=== PATIENT | female | born 1955 | race Caucasian/White ===

== ENCOUNTER → 2016-05-28 | Outpatient (CLI) | payer OTHER ==
[~2016-05-28] MED LIST: ADVAIR 250/501 EA INH; ALBUTEROL0.09 MG/A2 IH; ALBUTEROL0.09 MG/A2 INH; AMOXICILLIN500 MG PO; ATIVAN1 MG PO; AUGMENTIN 875 M1 TAB PO; AUGMENTIN 875875 MG PO; CALCIUM 500500 M2 PO; CLARITIN10 MG PO; DAYPRO600 M1 PO; LEVAQUIN750 MG PO; MEDROL DOSEPAK4 MG PO; MOTRIN800 MG PO; NKHM; PREDNICOT10 MG PO; PREDNICOT20 MG PO; PREDNISONE10 MG PO; PROVENTIL0.09 MG/AC IH; SKELAXIN800 MG PO; SPIRIVA18 MCG PO; TRAMADOL HCL50 MG PO; VIBRAMYCIN100 MG PO; VICODIN ES 7501 TAB PO; VITAMIN D32000 IU PO; ZITHROMAX Z PA250 MG PO
== END | disposition home or self-care (01) ==
LOC: MAMMO 14:21
DX: Z12.31 Encounter for screening mammogram for malignant neoplasm of breast (principal)

== ENCOUNTER → 2016-07-03 | Outpatient (CLI) | payer OTHER | END | disposition home or self-care (01) | LOC: RAD 13:59 | DX: M19.012 Primary osteoarthritis, left shoulder (principal) ==

== ENCOUNTER → 2016-08-18 | Outpatient (CLI) | payer OTHER | END | disposition home or self-care (01) | LOC: CT 08:45 | DX: J44.9 Chronic obstructive pulmonary disease, unspecified (principal); R91.1 Solitary pulmonary nodule; J84.10 Pulmonary fibrosis, unspecified; Z90.49 Acquired absence of other specified parts of digestive tract ==

== ENCOUNTER 2017-04-27 17:27 | Inpatient (IN) | payer OTHER ==
[~2017-04-27] VITALS: Ht 152.4 cm; Wt 56.2 kg
--- NOTE | ~2017-04-27 | CON ---
[place], [place] REPORT OF CONSULTATION [id number] UNIT #: [id number] ROOM: 521 DOCTOR: SINAN CHRISTENSEN MD BIRTHDATE: [birth year] DOS: 04/28/2017 REASON FOR CONSULTATION: Chest pain. HISTORY OF PRESENT ILLNESS: The patient was seen in the cardiology department today 04/28/2017 just prior to a pharmacologic stress test. She is a 61-year-old woman who has no previous history of coronary disease. She is a chronic smoker and does have chronic bronchitis with obstructive lung disease. She has had hospitalizations for exacerbation of COPD in the past. She has a history of aseptic necrosis of the femoral head, caused by steroids that were used for her bronchitis. The patient was in her normal state of health until about a week ago. She developed cough, shortness of breath, chills, wheezing and body aches. She went to her PCP and was treated with amoxicillin along with Tessalon Perles. She did feel better and was approaching her baseline; however, on 03/27/2017 while climbing some stairs, she did begin to have worsening shortness of breath along with pain in her right back, which radiated around her right side into the right lower chest. She stated that the pain was worse with a deep breath or cough and that nothing that she could do would make the pain better. When the pain persisted, she presented to the emergency room where she was treated with bronchodilators, aspirin and Toradol. Her symptoms improved and she now feels better, although she still has dyspnea with minor exertion. Since hospitalization, her electrocardiograms have shown no acute changes. Serial troponin levels have been negative. PAST MEDICAL HISTORY: Includes 1. Long-term and ongoing cigarette abuse. 2. Chronic bronchitis. 3. COPD. 4. Peripheral neuropathy. 5. History of aseptic necrosis of the femoral head. 6. History of cholecystectomy, hemorrhoidectomy, hysterectomy and ovarian cystectomy. MEDICATIONS PRIOR TO ADMISSION: Albuterol by inhaler q.4h. p.r.n., Breo Ellipta 200/25 daily, DuoNeb 3 mL by nebulizer q.4 hours, Incruse Ellipta 62.5 mcg inhaled daily, amoxicillin 500 mg t.i.d., Tessalon Perles 100 mg t.i.d., bupropion 100 mg b.i.d., gabapentin 300 mg b.i.d., loratadine 10 mg daily, naproxen 500 mg t.i.d. and ondansetron 4 mg daily p.r.n. nausea. ALLERGIES: She has no known drug allergies. FAMILY HISTORY: The patient's father from cirrhosis. Her mother from cervical cancer. REVIEW OF SYSTEMS: The patient denies diplopia or loss of vision. She denies focal weakness. She denies lightheadedness or syncope. She does have chronic dyspnea, which has gotten worse lately. She also notes an increase in her cough [place], [place] REPORT OF CONSULTATION NAME: DUARTE CARRILLO UNIT #: [id number] ROOM: 521 DOCTOR: SINAN CHRISTENSEN MD BIRTHDATE: [birth year] which is nonproductive. She denies fevers, chills or recent weight change, although she did have some feverishness a week ago. She denies nausea or vomiting. She has had a poor appetite. She has not had any hemoptysis or hematemesis, but occasionally does have streaks of blood when she blows her nose. She does note that her chest pain is worsened with a deep breath or cough. She denies change in bowel or bladder habits and denies blood in her stools or urine. She denies any skin rashes. She denies polydipsia or polyuria. She states that she does have occasional mild swelling in her ankles. The remainder of the review of systems is negative except as noted above. SOCIAL HISTORY: The patient does smoke a half pack or more a day. She does use marijuana on occasion. She does not drink alcohol. PHYSICAL EXAMINATION: GENERAL: The patient is well-nourished white female who is awake, alert and oriented. VITAL SIGNS: Pulse is 88 and regular, blood pressure is 132/69. She is afebrile. She weighs 56.2 kg and has a body mass index of 24.2. HEENT: Normocephalic and atraumatic. Extraocular muscles are intact. Sclerae are clear. Pupils equal, round and react to light. The oral mucosa is moist. Tongue is midline. NECK: Supple. She has no jugular distention. Carotids are full. I heard no bruits. She had no neck or supraclavicular masses and no thyromegaly. LUNGS: Respirations were somewhat tachypneic. She did have decreased breath sounds at the bases with expiratory prolongation and scattered wheezes bilaterally. She had no rales. She had no presacral edema or chest wall tenderness. CARDIOVASCULAR: Heart had a regular rhythm with an S4 gallop, but no S3 or murmur. The PMI was not displaced. She did have some tenderness in her right lateral chest and flank which did not entirely reproduce her presenting pains. ABDOMEN: Soft and normally active. She was tender in her abdomen as well, but stated that the tenderness felt superficial. She had no mass or rebound and no obvious organomegaly. EXTREMITIES: Showed no edema. Peripheral pulses were diminished, but palpable in the feet. LABORATORY DATA: Electrocardiogram shows sinus rhythm and is a normal tracing. IMPRESSION: 1. Atypical chest pain. Thus far, the patient shows no signs of an acute coronary syndrome. 2. Acute exacerbation of chronic obstructive lung disease. 3. History of aseptic femoral necrosis, probably from steroid therapies. 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 PLAN: Based on her presentation and normal cardiac biomarkers, it seems very unlikely that her symptoms are due to an acute coronary syndrome; however, she does have significant risk factors. We will therefore proceed with a pharmacologic stress test. If that is normal, then no other cardiac workup would be indicated at this time. She was told in no uncertain terms that she [place], [place] REPORT OF CONSULTATION NAME: DUARTE CARRILLO UNIT #: [id number] ROOM: 521 DOCTOR: SINAN CHRISTENSEN MD BIRTHDATE: [birth year] should quit smoking immediately. At this point, I have no other suggestions aside from continued risk factor modification. I will let her primary physicians on the results of her stress test when they are available. I thank Dr. Pena for asking our advice regarding her assessment. SINAN CHRISTENSEN MD CM:CONSTR:REPORT OF CONSULTATION 1317 04/28/17 [id number] interface
[2017-04-27 17:35] VITALS: BP 130/68
[2017-04-27 18:00] VITALS: BP 110/68
[2017-04-27] MEDS ORDERED: NEURONTIN300 MG PO (18:26)
[2017-04-27] MEDS ORDERED: TESSALON PERLE100 M1 PO (18:27)
[2017-04-27] MEDS ORDERED: AMOXICILLIN500 M2 PO (18:30)
[2017-04-27] MEDS ORDERED: BUPROPION ER100 M1 PO (18:30)
[2017-04-27 18:32] LABS: HEMATOCRIT 37.5 % (37.0-47.0); HEMOGLOBIN 12.3 g/dl (12.0-16.0); MEAN CELL VOLUME 92.1 fl (81.0-99.0); MEAN CORPUSCULAR HGB 30.2 pg (27.0-31.0); MEAN CORPUSCULAR HGB CONC 32.8 g/dl (33.0-37.0); PLATELET COUNT AUTOMATED 222 10*3/uL (130-400); RED BLOOD COUNT 4.07 10*6/uL (4.10-5.10); RED CELL DISTRI WIDTH 13.8 % (0-14.5); WHITE BLOOD COUNT 11.5 10*3/uL (4.8-10.8)
[2017-04-27 18:48] LABS: ALBUMIN 2.7 gm/dl (3.1-4.5); ALKALINE PHOSPHATASE 62 U/L (45-117); BUN 15 mg/dl (7-24); CHLORIDE 104 mmol/L (98-107); CREATININE 0.68 mg/dL (0.55-1.02); POTASSIUM 3.7 mmol/L (3.5-5.1); SGOT/AST 35 IU/L (3-35); SGPT/ALT 31 U/L (12-78); SODIUM 140 mmol/L (136-145); TOTAL PROTEIN 5.8 gm/dL (6.4-8.2)
[2017-04-27 18:51] VITALS: BP 101/77
[2017-04-27 18:51] LABS: TROPONIN I < 0.015 ng/ml (<0.045)
[2017-04-27 18:54] LABS: PLATELET SUFFICIENCY NORMAL (NORMAL); TOTAL CELLS COUNTED 100 #CELLS
[2017-04-27 19:25] VITALS: BP 116/64
[2017-04-27 21:06] VITALS: BP 150/82
[2017-04-27] MEDS ORDERED: DUONEB 3 MG/3 ML3 M1 INH (21:48)
[2017-04-27] MEDS ORDERED: INCRUSE ELLI62.5 MCG INH (21:48)
[2017-04-27] MEDS ORDERED: BREO ELLIPTA 21 EACH INH (21:48)
[2017-04-27] MEDS ORDERED: ONDANSETRON4 M1 PO (21:54)
[2017-04-27] MEDS ORDERED: CLARITIN10 MG PO (21:55)
[2017-04-27] MEDS ORDERED: NAPROSYN500 MG PO (21:55)
[2017-04-27 22:00] VITALS: BP 127/70
[2017-04-28] VITALS: BP 129/78
[2017-04-28 06:34] LABS: HEMATOCRIT 38.4 % (37.0-47.0); HEMOGLOBIN 12.5 g/dl (12.0-16.0); MEAN CELL VOLUME 93.7 fl (81.0-99.0); MEAN CORPUSCULAR HGB 30.5 pg (27.0-31.0); MEAN CORPUSCULAR HGB CONC 32.6 g/dl (33.0-37.0); MEAN PLATELET VOLUME 10.1 fl (9.6-12.3); PLATELET COUNT AUTOMATED 273 10*3/uL (130-400)
[2017-04-28 07:06] LABS: BUN 12 mg/dl (7-24); CHLORIDE 108 mmol/L (98-107); CHOLESTEROL 103 mg/dL (<200); CREATININE 0.74 mg/dL (0.55-1.02); PHOSPHOROUS 3.5 mg/dL (2.5-4.9); SODIUM 142 mmol/L (136-145); TRIGLYCERIDES 43 mg/dl (<150); VLDL CHOLESTEROL 9 mg/dL (6-40)
[2017-04-28 07:09] LABS: BURR CELLS FEW; PLATELET SUFFICIENCY NORMAL (NORMAL); TOTAL CELLS COUNTED 100 #CELLS
[2017-04-28 07:15] LABS: HDL CHOLESTEROL 50 mg/dl (40-60); LDL CHOLESTEROL 44 mg/dL (9-159); THYROID STIM HORMONE (HS) 0.419 uIU/ml (0.358-4.75)
[2017-04-28 07:44] LABS: VITAMIN D, 25-HYDROXY 29.2 ng/mL (30-100)
[2017-04-28 08:00] VITALS: BP 132/69
[2017-04-28 16:00] VITALS: BP 124/68
[2017-04-28 20:00] VITALS: BP 132/67
[2017-04-29] VITALS: BP 132/70
[2017-04-29 06:45] VITALS: BP 134/72
[2017-04-29 07:20] LABS: BUN 16 mg/dl (7-24); CHLORIDE 111 mmol/L (98-107); CREATININE 0.64 mg/dL (0.55-1.02); POTASSIUM 3.4 mmol/L (3.5-5.1); SODIUM 143 mmol/L (136-145)
[2017-04-29 07:24] LABS: BASO % 0.1 % (0.0-1.0); HEMATOCRIT 37.1 % (37.0-47.0); HEMOGLOBIN 11.9 g/dl (12.0-16.0); LYMPH # 0.8 10*3/uL (1.3-4.4); LYMPH % 6.4 % (27.0-41.0); MEAN CORPUSCULAR HGB 29.8 pg (27.0-31.0); MEAN CORPUSCULAR HGB CONC 32.1 g/dl (33.0-37.0); MEAN PLATELET VOLUME 9.8 fl (9.6-12.3); MONO # 0.9 10*3/uL (0.1-1.0); MONO % 6.8 % (3.0-9.0); NEUT # 11.3 10*3/uL (2.3-7.9); NEUT % 86.1 % (47.0-73.0); RED BLOOD COUNT 3.99 10*6/uL (4.10-5.10); RED CELL DISTRI WIDTH 14.3 % (0-14.5); WHITE BLOOD COUNT 13.2 10*3/uL (4.8-10.8)
[2017-04-29 07:25] LABS: PLATELET COUNT AUTOMATED 377 10*3/uL (130-400)
[2017-04-29 08:00] VITALS: BP 134/72
[2017-04-29] MEDS ORDERED: PREDNISONE10 MG PO (13:20)
== END 2017-04-29 13:58 | disposition home or self-care (01) | DRG 871 ==
LOC: ED 17:27 → EDHOLD 20:18 → 5E 20:18
PROVIDERS: Emergency Medicine; Hospitalist; Student in an Organized Health Care Education/Training Program
PROC: 4A02XM4 Measurement of Cardiac Total Activity, External Approach (ICD-10-PCS; principal; 2017-04-28)
PROC: 3E073KZ Introduction of Other Diagnostic Substance into Coronary Artery, Percutaneous Approach (ICD-10-PCS; 2017-04-28)
DX: A41.9 Sepsis, unspecified organism (principal); J18.9 Pneumonia, unspecified organism; E43 Unspecified severe protein-calorie malnutrition; J44.1 Chronic obstructive pulmonary disease with (acute) exacerbation; J44.0 Chronic obstructive pulmonary disease with (acute) lower respiratory infection; K21.9 Gastro-esophageal reflux disease without esophagitis; E87.6 Hypokalemia; E55.9 Vitamin D deficiency, unspecified; F12.90 Cannabis use, unspecified, uncomplicated; D72.810 Lymphocytopenia; G62.9 Polyneuropathy, unspecified; F17.210 Nicotine dependence, cigarettes, uncomplicated; M94.0 Chondrocostal junction syndrome [Tietze]; Z71.6 Tobacco abuse counseling; Z90.710 Acquired absence of both cervix and uterus; Z90.49 Acquired absence of other specified parts of digestive tract; Z68.24 Body mass index [BMI] 24.0-24.9, adult; Z80.8 Family history of malignant neoplasm of other organs or systems; Z83.79 Family history of other diseases of the digestive system; Z79.899 Other long term (current) drug therapy

== ENCOUNTER 2017-05-06 13:32 | Inpatient (IN) | payer OTHER ==
[~2017-05-06] VITALS: Ht 153.6 cm; Wt 56.8 kg
--- NOTE | ~2017-05-06 | PR ---
[place], [place] PROGRESS NOTE NAME: DUARTE CARRILLO [facility] #: [id number] UNIT #: [id number] ROOM: 532 DOCTOR: LAURO MACEDO MD,BOB BIRTHDATE: [birth year] DOS: 05/09/2017 SUBJECTIVE: She has been noted without any acute distress at this time. The coughing has been subsiding. Shortness breath was slowly improving. There were no symptoms of chest pain. She was continued on antibiotics. The patient denies symptoms of nausea or vomiting. Denies any abdominal pain. Denies any symptoms of hematuria or dizziness. Remaining systems were reviewed, they were noted all negative. CT scan of the chest was completed yesterday for this patient as a CTA of this patient for further assessment. OBJECTIVE: VITAL SIGNS: This morning, normal temperature, respiratory rate 20, heart rate of 93, blood pressure 160/78 to 116/84. The pulse oxygen saturation of the patient noted on room air 93% saturation. HEENT: Examination shows head was atraumatic. Eyes nonicterus. NECK: Supple. CARDIOVASCULAR: S1, S2 audible. LUNGS: Noted with moderate decreased breath sounds in the lungs bilaterally with scattered expiratory wheezing. ABDOMEN: Soft, nontender. Bowel sounds present. EXTREMITIES: The patient noted without any acute edema. LABORATORY DATA: CT of the chest does not show any evidence of pulmonary embolism. The patient was noted with increased interstitial markings in the upper lung as well. There was no area of consolidation or other infiltration. Centrilobular emphysema was noted with a small nodule noted appeared to be probably intraparenchymal lymph node for the patient in the right minor fissure area. There was no significant lymphadenopathy. The CBC of the patient, WBC count 23.3, hemoglobin and hematocrit normal, and platelet count 452. Blood culture from 05/06/2017 for the patient was noted without any bacterial growth. CBC: WBC count 23.3 noted today, hemoglobin and hematocrit normal, and platelet count elevated mildly at about 452,000. IMPRESSION: 1. The patient who has been noted with the current acute hypoxic respiratory failure with exacerbation of chronic obstructive pulmonary disease, increased interstitial marking of the lung. The patient with unclear significance. Evidence of a small nodule fissure noted in the right mid lung for this patient most likely intraparenchymal lymph node suspected. Changes centrilobular emphysema. Leukocytosis still noted significant but decreased partially from yesterday. PLAN OF TREATMENT: Continue current antibiotics. The patient at this time will continue bronchodilators, oxygen supplementation and corticosteroids, but the dose will be decreased to 40 mg b.i.d. dosing. Other supportive therapy and plan of management continued. Monitor respiratory status closely. Repeat CBC in the morning. Discharge planning was done after another CBC tomorrow morning to assess the response to the current changes in medical management as well. [place], [place] PROGRESS NOTE NAME: GERARDODUARTE Juan Ramon [id number] UNIT #: [id number] ROOM: [facility] DOCTOR: BOB VALLE MD BIRTHDATE: [birth year] BOB RESTREPO MD CM:PNTEODORO [id number] BOB MACEDO MD 05/09/17 1311 interface
--- NOTE | ~2017-05-06 | PR ---
[place], [place] PROGRESS NOTE NAME: DUARTE CARRILLO [facility] #: [id number] UNIT #: [id number] ROOM: 532 DOCTOR: LAURO MACEDO MD,BOB BIRTHDATE: [birth year] DOS: 05/08/2017 SUBJECTIVE: The patient was noted comfortable at this time without any acute distress. Has not been noted any ongoing acute complaints at present time. Shortness of breath has been improving. The coughing has been resolving. There were no symptoms of chest pain or any hemoptysis. She denies symptoms of abdominal pain, nausea, or vomiting. Denies dizziness. Remaining systems were reviewed. They were noted all negative: PHYSICAL EXAMINATION: GENERAL: The patient was sitting on the bed at this time, eating her breakfast without any distress. VITAL SIGNS: The pulse oxygen saturation recorded as 97% on 2 liter nasal cannula, this was at rest. The temperature noted as normal. The respiratory rate recorded as 20-18, heart rate 79, blood pressure 154/88. Intake for the patient was about 1800 mL. HEENT: No new change. NECK: Supple. CARDIOVASCULAR: S1, S2 audible. LUNGS: The patient was noted with general reduction in breath sounds still noted with scattered expiratory wheezing. There were no crackles. ABDOMEN: Soft, nontender. EXTREMITIES: The patient was noted without any acute edema. MUSCULOSKELETAL: The patient was noted without any acute deformities. VISIBLE SKIN: No lesions or rashes. CENTRAL NERVOUS SYSTEM: No focal deficit. Cranial nerves 2-12 intact. LABORATORY DATA: CBC today for the patient still noted significant WBC count elevation as 26,000, hemoglobin 12.2, hematocrit 38.4, platelet count 433,000, 92% segmented neutrophils. BMP of the patient's glucose 136, BUN normal, creatinine was normal, magnesium was normal. IMPRESSION: 1. The patient who has been currently admitted to the hospital with ongoing acute exacerbation of chronic obstructive pulmonary disease with acute respiratory failure, still noted significant hypoxia. The patient walked only few feet on a leveled surface, noted significant oxygen desaturation. 2. Over debility. 3. Persistent leukocytosis. Chest x-ray was not suggestive of any acute pneumonia. ____ infection for this patient is still to be considered in the lungs. The cough has been noted intermittently with some sputum expectoration. PLAN OF MANAGEMENT: CT scan of the chest will be obtained to assess the significant hypoxia. At this time, still remains persistent. A CT scan of the chest will be obtained that will also clarify any underlying infiltration since she actually not always sensitive enough to ____ any pneumonia. Continuation in the meantime, bronchodilators and other therapies. The Solu-Medrol is currently noted 60 mg, will be decreased to 40 mg q.8h. Doxycycline will be added to the treatment. Zithromax will be discontinued. Bronchoscopy will be considered, if [place], [place] PROGRESS NOTE NAME: DUARTE CARRILLO [facility] #: [id number] UNIT #: [id number] ROOM: [facility] DOCTOR: LAURO MACEDO MD,BOB BIRTHDATE: [birth year] the patient respiratory status remains the same, persistent leukocytosis. Usual care. BOB RESTREPO MD CM:PNTRANS [id number] BOB MACEDO MD 05/09/17 0008 interface
--- NOTE | ~2017-05-06 | PR ---
[place], [place] PROGRESS NOTE NAME: DUARTE CARRILLO [facility] #: [id number] UNIT #: [id number] ROOM: 532 DOCTOR: DEBORAH BOOTH MD BIRTHDATE: [birth year] DOS: SUBJECTIVE: The patient has been admitted to hospital with acute respiratory distress with acute bronchitis and pneumonitis with hypoxia, sepsis, pneumonitis, COPD with emphysema, tachypnea, tachycardia, with history of tobacco abuse, lactic acidosis, leukocytosis and malnutrition, vitamin D deficiency and GERD syndrome. The patient is feeling much better today. She is breathing better and she does not have any chest pain, no difficulty breathing. She is having slight cough. Her basic metabolic profile shows glucose 136, calcium 8.3, magnesium 2.5. Other values are normal. Urine culture did not grow any bacteria. CBC showed white count 26,000, hemoglobin 12.2, hematocrit 38.6, white count is elevated ____. The patient is receiving Solu-Medrol. Neutrophil count is 92, lymphocyte is 4. Blood culture is negative. OBJECTIVE: HEART: Regular. CHEST: Having occasional wheeze. No crepitation. VITAL SIGNS: Blood pressure 156/89, pulse 79, respirations ____, temperature 97.9. DEBORAH BOOTH MD CM:PNTRANS [phone] DEBORAH BOOTH MD 05/08/17 182 interface
--- NOTE | ~2017-05-06 | PR ---
[place], [place] PROGRESS NOTE NAME: DUARTE CARRILLO [facility] #: [id number] UNIT #: [id number] ROOM: 532 DOCTOR: LAURO MACEDO MD,BOB BIRTHDATE: [birth year] DOS: 05/10/2017 PULMONARY PROGRESS NOTE SUBJECTIVE: She has been ambulating with reduction in respiratory complaints noted. Cough has been noted minimal at this time. Shortness of breath has been improving. There were no symptoms of chest pain or hemoptysis. OBJECTIVE: VITAL SIGNS: For the patient which has been recorded shows normal temperature, respiratory rate 18, heart rate 93, blood pressure 143/77. Pulse oxygen saturation on room air was 94% saturation. HEENT: No acute change. NECK: Supple. CARDIOVASCULAR: S1, S2 audible. LUNGS: Noted without any wheeze or crackles. ABDOMEN: Soft, nontender. EXTREMITIES: Without any acute edema. LABORATORY DATA: CBC: WBC count 26,000, platelet count 436,000, 83% segmented neutrophils. IMPRESSION: The patient with leukocytosis that remains persistent, most likely related to corticosteroid and resolving acute exacerbation of chronic obstructive pulmonary disease. The patient with acute respiratory failure, improving progressively as well with exacerbation of chronic obstructive pulmonary disease. PLAN OF TREATMENT: The patient will be asked for formal assessment for home oxygen today prior to discharge. Discharge for the patient to be done on tapering dose of prednisone and oral antibiotics and outpatient followup. Abstinence of tobacco use was recommended. BOB RESTREPO MD CM:PNTRANS [id number] BOB MACEDO MD 05/10/17 1141 interface
--- NOTE | ~2017-05-06 | CON ---
[place], [place] REPORT OF CONSULTATION NAME: DUARTE CARRILLO [facility] #: [id number] UNIT #: [id number] ROOM: 532 DOCTOR: LAURO MACEDO MD,BOB BIRTHDATE: [birth year] DOS: 05/07/2017 PULMONARY CONSULTATION EVALUATION MANAGEMENT NOTE REQUESTING PHYSICIAN: Consultation requested by Jaime Pena M.D. REASON FOR CONSULTATION: Assess the patient for ongoing acute respiratory complaints. HISTORY OF PRESENT ILLNESS: This is a 61-year-old white female patient who has been known to me from the office visit with history of COPD. The patient came into my office and was seen on 05/05/2017 as the patient recently admitted in this hospital and discharged home. The patient stated that she has been still noted ongoing acute severe illness with cough, shortness breath with minimal exertion, fatigue and tiredness. The cough has been noted nonproductive. The patient denies symptoms of chest pain. She does have symptoms of wheezing as well. The patient was advised to go back to the hospital to be admitted on the 05/05/2017, but the patient did not go to the hospital and then went to the hospital Emergency on 05/05/2017. The patient was assessed and admitted to the hospital for further medical management. The patient was seen in the office with acute hypoxia as well and hypoxic respiratory failure. Pulse ox saturation 89% and after the patient walked about 50 feet or so, her pulse oxygen saturation decreased severely, unable to bring up to the 90% level or show even with 4 liters of oxygen supplementation. The patient stated since she has been in the hospital, she has been noted with partial improvement reduction in the respiratory symptoms reported earlier. REVIEW OF SYSTEMS: CONSTITUTIONAL SYMPTOMS: She was still complaining of symptoms of fatigue. Denies symptoms of chills. The patient denies symptoms of fever. EYES: Denies any burning, redness, or tenderness. EARS, NOSE, THROAT SYMPTOMS: No sore throat, hoarseness, otalgia, postnasal drainage, epistaxis. CARDIOVASCULAR: Denies anginal pain, edema, pain of the lower extremities. GASTROINTESTINAL SYMPTOMS: Dysphagia, nausea, vomiting, diarrhea, abdominal pain, hematemesis, melena, hematochezia, abnormal weight loss. MUSCULOSKELETAL: No acute joint pain, redness, or tenderness. GENITOURINARY SYMPTOMS: No dysuria, suprapubic pain, or hematuria. SKIN: Denies lesions or rashes. CENTRAL NERVOUS SYSTEM: No dizziness, headache, diplopia, syncopal episodes or focal deficit. Remaining systems were reviewed, they were noted all negative. PAST MEDICAL HISTORY: 1. COPD. 2. History of pulmonary nodule of 6 mm since 2012 and another nodule 9 mm noted in the left upper lobe with mild abnormal SUV uptake for the patient with a PET scan as 1.4. [place], [place] REPORT OF CONSULTATION NAME: DUARTE CARRILLO UNIT #: [id number] ROOM: [facility] DOCTOR: LAURO MACEDO MD,BOB BIRTHDATE: [birth year] SOCIAL HISTORY: The patient lives at home. She is , has 2 children. Denies history of alcohol use, illicit drug use. Tobacco use started at age of [age] years old as 1-1/2 pack of cigarettes per day until 01/2015. PAST SURGICAL HISTORY: 1. Noted as partial hysterectomy, 33 years old. 2. Cholecystectomy, age [age] years old. 3. Lumbar laminectomy. FAMILY HISTORY: The patient's father unknown illness. Mother at age 5252 years old with cancer of the cervix. MEDICATIONS: From home were noted use of ProAir HFA inhaler, Tessalon Perles, Wellbutrin, Breo Ellipta, Neurontin, DuoNeb, loratadine, naproxen, prednisone, recent tapering dose and Incruse Ellipta. DRUG ALLERGIES: No known drug allergies. PHYSICAL EXAMINATION: GENERAL: This is a 61-year-old female who was noted to be with a height of 5 feet, weight 125 pounds, BMI 24. VITAL SIGNS: For the patient which has been recorded showed the temperature noted normal since admission. The respiratory rate between 20-18, heart 75-116. Blood pressure 156/81 to 153/70. Pulse oxygen saturation on room air was noted 88% on 3 liter nasal cannula 97% saturation of oxygen. HEENT: Examination shows head was atraumatic. Eyes: No icterus. NECK: Supple. CARDIOVASCULAR: S1, S2 is audible. LUNGS: The patient was noted without any crackles. Decreased breath sounds are noted in the lungs bilaterally. Wheezing was present. ABDOMEN: Flat, soft, nontender. Bowel sounds present. EXTREMITIES: Without any acute edema. CENTRAL NERVOUS SYSTEM: The patient noted without any focal neurologic deficit. Cranial nerves 2-12 intact. SKIN: Visible skin, no lesions or rashes. MUSCULOSKELETAL: Without any acute deformities. LABORATORY DATA: Lactic acid 3.2 on admission and then 1.6 followup. The CBC on 05/06/2017, WBC count 24,000, hemoglobin and hematocrit normal, platelet count 452,000 and elevated at 93% segmented neutrophils. CMP on 05/06/2017, noted as glucose 158, BUN normal, creatinine was normal. Albumin 3.0. The troponin of the patient noted normal yesterday as well. CBC today: WBC count 21.7, hemoglobin and hematocrit normal, platelet count elevated 413,000. BMP: Glucose 138, BUN and creatinine were normal. Urine culture preliminary no bacterial growth. Two-view chest x-ray of the patient, which was done in the Emergency Room was personally reviewed does not show any acute pulmonary infiltration. IMPRESSION: 1. The patient has been noted with severe leukocytosis with ongoing findings [place], [place] REPORT OF CONSULTATION NAME: DUARTE CARRILLO UNIT #: [id number] ROOM: [facility] DOCTOR: BOB VALLE MD BIRTHDATE: [birth year] consistent with the sepsis, most likely related to acute bronchitis and ongoing acute exacerbation of chronic obstructive pulmonary disease and acute respiratory failure as a result of the above as well. 2. Past history of nicotine use. 3. History of rhinitis and other medical problems as well as essential hypertension. PLAN OF MANAGEMENT: Continuation of the current corticosteroids. Continue current antibiotic for the patient suffice for current treatment. Bronchodilator will be given every 4 hours. The patient already given the intravenous fluid. Gradual reduction of steroids based on improvement in respiratory symptoms will be done. Other treatment plan and management as ongoing. Usual care, other supportive plan of therapy and management as well. DVT prophylaxis will be continued. Thanks for allowing me to participate in the care of this patient. BOB RESTREPO MD CM:CONSTR:REPORT OF CONSULTATION 1308 05/08/17 0306 interface
--- NOTE | ~2017-05-06 | PR ---
[place], [place] PROGRESS NOTE NAME: DUARTE CARRILLO [facility] #: [id number] UNIT #: [id number] ROOM: 532 DOCTOR: DEBORAH BOOTH MD BIRTHDATE: [birth year] DOS: SUBJECTIVE: The patient has been admitted to hospital with acute respiratory failure, acute respiratory distress, COPD, emphysema and pneumonitis and the patient is feeling gradually improving. She denies any chest pain. She is having some cough, but mostly it is dry. It is improving also, much better. She does not have any nausea. No vomiting. No constipation. No diarrhea. The patient is feeling quite comfortable today. Her CBC is still showing elevation of white count to 23,003, hemoglobin 13.8. The elevated white count is due to the Solu-Medrol, which patient is receiving. CTA of the chest was done. It shows no evidence of pulmonary embolus, chronic parenchymal lung disease, no acute process or adverse changes were noted. OBJECTIVE: VITAL SIGNS: Her blood pressure is 160/78, pulse 93, respirations 20, temperature 98.2. HEART: ____. CHEST: Having occasional wheezes. No crepitation. ABDOMEN: Soft. DEBORAH BOOTH MD CM:PNTEODORO 1346 [id number] DEBORAH BOOTH MD 05/09/17 1453 interface
--- NOTE | ~2017-05-06 | EKG ---
[place], [place] ELECTROCARDIOGRAM REPORT NAME: DUARTE CARRILLO UNIT #: [id number] ROOM: 532 DOCTOR: LAURO MACEDO MD,BOB BIRTHDATE: [birth year] DOS: 05/06/2017 Electrocardiogram done on 05/06/2017 at 2:12 p.m. Electrocardiogram shows normal sinus rhythm with heart rate 97 beats per minute. Right axis deviation noted with right atrial enlargement as well. BOB RESTREPO MD CM:EKGRPT:ELECTROCARDIOGRAM REPORT 1453 1540 BOB MACEDO MD
[~2017-05-06 13:32] MED LIST changes: +AMOXICILLIN500 M2 PO; +BREO ELLIPTA 21 EACH INH; +BUPROPION ER100 M1 PO; +DUONEB 3 MG/3 ML3 M1 INH; +INCRUSE ELLI62.5 MCG INH; +NAPROSYN500 MG PO; +NEURONTIN300 MG PO; +ONDANSETRON4 M1 PO; +TESSALON PERLE100 M1 PO
[2017-05-06 13:37] VITALS: BP 156/81
[2017-05-06 14:25] VITALS: BP 141/82
[2017-05-06 14:28] LABS: HEMATOCRIT 39.5 % (37.0-47.0); HEMOGLOBIN 12.8 g/dl (12.0-16.0); MEAN CELL VOLUME 92.5 fl (81.0-99.0); MEAN CORPUSCULAR HGB CONC 32.4 g/dl (33.0-37.0); MEAN PLATELET VOLUME 8.9 fl (9.6-12.3); PLATELET COUNT AUTOMATED 453 10*3/uL (130-400); RED BLOOD COUNT 4.27 10*6/uL (4.10-5.10); WHITE BLOOD COUNT 24.1 10*3/uL (4.8-10.8)
[2017-05-06 14:44] LABS: ALKALINE PHOSPHATASE 74 U/L (45-117); BUN 15 mg/dl (7-24); CHLORIDE 104 mmol/L (98-107); CREATININE 0.95 mg/dL (0.55-1.02); SGOT/AST 15 IU/L (3-35); SGPT/ALT 53 U/L (12-78); SODIUM 140 mmol/L (136-145); TOTAL PROTEIN 6.4 gm/dL (6.4-8.2)
[2017-05-06 14:47] LABS: TOTAL CELLS COUNTED 100 #CELLS
[2017-05-06 14:48] LABS: PLATELET SUFFICIENCY HIGH (NORMAL)
[2017-05-06 14:58] LABS: TROPONIN I < 0.015 ng/ml (<0.045)
[2017-05-06 15:29] VITALS: BP 140/78
[2017-05-06 16:00] VITALS: BP 138/78
[2017-05-06 16:30] VITALS: BP 130/78
[2017-05-06] MEDS ORDERED: VITAMIN D-32000 UNI1 PO (17:32)
[2017-05-06 17:37] LABS: BILIRUBIN NEGATIVE (NEGATIVE); BLOOD NEGATIVE (NEGATIVE); CLARITY CLEAR (CLEAR); COLOR YELLOW (YELLOW); GLUCOSE NEGATIVE (NEGATIVE); KETONE NEGATIVE (NEGATIVE); LEUKO ESTERASE NEGATIVE (NEGATIVE); NITRITE NEGATIVE (NEGATIVE); PH 6.5 (5.0-9.0); UROBILINOGEN 0.2 E.U./dl (0.2-1.0)
[2017-05-06 17:43] LABS: BACTERIA 2+; MUCOUS TRACE; RBC 0-2 rbc/hpf (0-2); WBC 0-2 wbc/hpf (0-5)
[2017-05-06 20:00] VITALS: BP 150/72
[2017-05-07 00:16] VITALS: BP 153/70
[2017-05-07 06:29] LABS: HEMATOCRIT 38.8 % (37.0-47.0); HEMOGLOBIN 12.2 g/dl (12.0-16.0); MEAN CELL VOLUME 94.9 fl (81.0-99.0); MEAN CORPUSCULAR HGB 29.8 pg (27.0-31.0); MEAN CORPUSCULAR HGB CONC 31.4 g/dl (33.0-37.0); MEAN PLATELET VOLUME 8.9 fl (9.6-12.3); PLATELET COUNT AUTOMATED 413 10*3/uL (130-400); RED BLOOD COUNT 4.09 10*6/uL (4.10-5.10); RED CELL DISTRI WIDTH 14.1 % (0-14.5); WHITE BLOOD COUNT 21.7 10*3/uL (4.8-10.8)
[2017-05-07 06:54] LABS: PLATELET SUFFICIENCY NORMAL (NORMAL); TOTAL CELLS COUNTED 100 #CELLS
[2017-05-07 06:56] LABS: BUN 13 mg/dl (7-24); CHLORIDE 107 mmol/L (98-107); CREATININE 0.78 mg/dL (0.55-1.02); PHOSPHOROUS 3.7 mg/dL (2.5-4.9); POTASSIUM 4.2 mmol/L (3.5-5.1); SODIUM 142 mmol/L (136-145)
[2017-05-07 12:00] VITALS: BP 155/72
[2017-05-07 16:00] VITALS: BP 146/85
[2017-05-07 20:00] VITALS: BP 154/81
[2017-05-08] VITALS: BP 154/88
[2017-05-08 06:04] LABS: BUN 16 mg/dl (7-24); CHLORIDE 106 mmol/L (98-107); CREATININE 0.73 mg/dL (0.55-1.02); POTASSIUM 4.5 mmol/L (3.5-5.1); SODIUM 141 mmol/L (136-145)
[2017-05-08 06:07] LABS: HEMATOCRIT 38.4 % (37.0-47.0); HEMOGLOBIN 12.2 g/dl (12.0-16.0); MEAN CELL VOLUME 94.6 fl (81.0-99.0); MEAN CORPUSCULAR HGB CONC 31.8 g/dl (33.0-37.0); MEAN PLATELET VOLUME 9.3 fl (9.6-12.3); PLATELET COUNT AUTOMATED 433 10*3/uL (130-400); RED BLOOD COUNT 4.06 10*6/uL (4.10-5.10); RED CELL DISTRI WIDTH 14.1 % (0-14.5)
[2017-05-08 07:12] LABS: TOTAL CELLS COUNTED 100 #CELLS
[2017-05-08 07:13] LABS: PLATELET SUFFICIENCY HIGH (NORMAL)
[2017-05-08 08:00] VITALS: BP 156/80
[2017-05-08 12:00] VITALS: BP 153/78
[2017-05-08 16:00] VITALS: BP 151/64
[2017-05-08 20:00] VITALS: BP 154/60
[2017-05-09] VITALS: BP 169/84
[2017-05-09 08:00] VITALS: BP 160/78
[2017-05-09 11:38] LABS: HEMATOCRIT 42.3 % (37.0-47.0); HEMOGLOBIN 13.5 g/dl (12.0-16.0); MEAN CELL VOLUME 93.2 fl (81.0-99.0); MEAN CORPUSCULAR HGB 29.7 pg (27.0-31.0); MEAN CORPUSCULAR HGB CONC 31.9 g/dl (33.0-37.0); MEAN PLATELET VOLUME 8.8 fl (9.6-12.3); PLATELET COUNT AUTOMATED 452 10*3/uL (130-400); RED BLOOD COUNT 4.54 10*6/uL (4.10-5.10); RED CELL DISTRI WIDTH 14.1 % (0-14.5); WHITE BLOOD COUNT 23.3 10*3/uL (4.8-10.8)
[2017-05-09 12:00] VITALS: BP 156/80; BP 158/72
[2017-05-09 12:05] LABS: PLATELET SUFFICIENCY HIGH (NORMAL); TOTAL CELLS COUNTED 100 #CELLS
[2017-05-09 16:00] VITALS: BP 145/74
[2017-05-09 20:00] VITALS: BP 151/75
[2017-05-10] VITALS: BP 143/77
[2017-05-10 06:10] LABS: HEMATOCRIT 41.4 % (37.0-47.0); HEMOGLOBIN 12.9 g/dl (12.0-16.0); MEAN CELL VOLUME 93.9 fl (81.0-99.0); MEAN CORPUSCULAR HGB 29.3 pg (27.0-31.0); MEAN CORPUSCULAR HGB CONC 31.2 g/dl (33.0-37.0); PLATELET COUNT AUTOMATED 436 10*3/uL (130-400); RED BLOOD COUNT 4.41 10*6/uL (4.10-5.10); RED CELL DISTRI WIDTH 14.4 % (0-14.5); WHITE BLOOD COUNT 26.4 10*3/uL (4.8-10.8)
[2017-05-10 07:04] LABS: PLATELET SUFFICIENCY HIGH (NORMAL); TOTAL CELLS COUNTED 100 #CELLS
[2017-05-10 08:00] VITALS: BP 166/82
[2017-05-10 12:00] VITALS: BP 148/74
[2017-05-10] MEDS ORDERED: DOXYCYCLINE MO100 M1 PO (13:05)
[2017-05-10] MEDS ORDERED: PREDNISONE10 MG PO (13:05)
== END 2017-05-10 13:59 | disposition home or self-care (01) | DRG 871 ==
LOC: ED 13:32 → EDHOLD 15:40 → 5E 15:40
PROVIDERS: Internal Medicine Critical Care Medicine; Physician Assistant; Student in an Organized Health Care Education/Training Program
DX: A41.9 Sepsis, unspecified organism (principal); J96.01 Acute respiratory failure with hypoxia; J18.9 Pneumonia, unspecified organism; D68.59 Other primary thrombophilia; E44.0 Moderate protein-calorie malnutrition; J44.1 Chronic obstructive pulmonary disease with (acute) exacerbation; J44.0 Chronic obstructive pulmonary disease with (acute) lower respiratory infection; R65.20 Severe sepsis without septic shock; F17.200 Nicotine dependence, unspecified, uncomplicated; Z71.6 Tobacco abuse counseling; R73.9 Hyperglycemia, unspecified; F12.90 Cannabis use, unspecified, uncomplicated; K21.9 Gastro-esophageal reflux disease without esophagitis; E55.9 Vitamin D deficiency, unspecified; R53.81 Other malaise; G62.9 Polyneuropathy, unspecified; Z90.49 Acquired absence of other specified parts of digestive tract; Z90.710 Acquired absence of both cervix and uterus; Z79.899 Other long term (current) drug therapy; Z68.24 Body mass index [BMI] 24.0-24.9, adult

== ENCOUNTER → 2017-08-19 | Outpatient (CLI) | payer OTHER ==
[~2017-08-19] MED LIST changes: +DOXYCYCLINE MO100 M1 PO; +VITAMIN D-32000 UNI1 PO
== END | disposition home or self-care (01) ==
LOC: CT 09:55
DX: J43.9 Emphysema, unspecified (principal); R91.1 Solitary pulmonary nodule

== ENCOUNTER → 2019-01-02 | Outpatient (CLI) | payer OTHER, MEDICAID | END | disposition home or self-care (01) | LOC: LAB 07:54 | DX: R05 Cough (principal) ==

== ENCOUNTER → 2019-11-14 | Outpatient (CLI) | payer OTHER, MEDICAID ==
[2019-11-14 09:12] LABS: BASO # 0.1 10*3/uL (0.0-0.1); BASO % 0.6 % (0.0-1.0); EOS # 0.2 10*3/uL (0.0-0.4); EOS % 2.8 % (1.0-4.0); HEMATOCRIT 46.1 % (37.0-47.0); LYMPH # 2.4 10*3/uL (1.3-4.4); LYMPH % 28.4 % (27.0-41.0); MEAN CELL VOLUME 94.5 fl (81.0-99.0); MEAN CORPUSCULAR HGB 29.5 pg (27.0-31.0); MEAN CORPUSCULAR HGB CONC 31.2 g/dl (33.0-37.0); MEAN PLATELET VOLUME 9.1 fl (9.6-12.3); MONO # 0.5 10*3/uL (0.1-1.0); MONO % 5.9 % (3.0-9.0); NEUT # 5.3 10*3/uL (2.3-7.9); NEUT % 62.1 % (47.0-73.0); PLATELET COUNT AUTOMATED 366 10*3/uL (130-400); RED BLOOD COUNT 4.88 10*6/uL (4.10-5.10); RED CELL DISTRI WIDTH 13.6 % (0-14.5); WHITE BLOOD COUNT 8.5 10*3/uL (4.8-10.8)
[2019-11-14 09:23] LABS: INTERNATIONAL NORM RATIO 0.9 (2.0-3.5)
[2019-11-14 09:29] LABS: ALBUMIN 3.9 gm/dl (3.1-4.5); ALKALINE PHOSPHATASE 83 U/L (45-117); BUN 16 mg/dl (7-24); CHLORIDE 106 mmol/L (98-107); POTASSIUM 3.9 mmol/L (3.5-5.1); SGOT/AST 17 IU/L (3-35); SGPT/ALT 28 U/L (12-78); SODIUM 139 mmol/L (136-145); TOTAL PROTEIN 7.1 gm/dL (6.4-8.2)
[2019-11-14 10:04] LABS: BILIRUBIN NEGATIVE; BLOOD NEGATIVE (NEGATIVE); CLARITY CLEAR (CLEAR); COLOR YELLOW (YELLOW); GLUCOSE NEGATIVE; KETONE NEGATIVE; LEUKO ESTERASE 2+ (NEGATIVE); NITRITE POSITIVE (NEGATIVE); PH 7.5 (4.5-8.0); UROBILINOGEN 0.2 E.U./dl (0.0-1.0)
[2019-11-14 12:32] LABS: BACTERIA 4+; WBC 51-100 wbc/hpf (0-5)
== END | disposition home or self-care (01) ==
LOC: LAB 08:39
PROVIDERS: ATTEND Orthopaedic Surgery
DX: J44.9 Chronic obstructive pulmonary disease, unspecified (principal); I49.9 Cardiac arrhythmia, unspecified; R53.83 Other fatigue; R53.1 Weakness; R23.3 Spontaneous ecchymoses; M19.90 Unspecified osteoarthritis, unspecified site; Z79.899 Other long term (current) drug therapy

== ENCOUNTER 2019-12-17 13:19 | Inpatient (IN) | payer OTHER, MEDICAID ==
[~2019-12-17] VITALS: Ht 154.9 cm; Wt 58.7 kg
[2019-12-17 13:20] VITALS: BP 170/78
[2019-12-17 13:51] LABS: BASO % 0.3 % (0.0-1.0); EOS # 0.4 10*3/uL (0.0-0.4); EOS % 2.9 % (1.0-4.0); HEMATOCRIT 37.7 % (37.0-47.0); LYMPH # 1.7 10*3/uL (1.3-4.4); LYMPH % 12.2 % (27.0-41.0); MEAN CELL VOLUME 95.2 fl (81.0-99.0); MEAN CORPUSCULAR HGB CONC 30.5 g/dl (33.0-37.0); MEAN PLATELET VOLUME 8.5 fl (9.6-12.3); MONO % 7.1 % (3.0-9.0); NEUT % 77.1 % (47.0-73.0); PLATELET COUNT AUTOMATED 507 10*3/uL (130-400); RED BLOOD COUNT 3.96 10*6/uL (4.10-5.10); RED CELL DISTRI WIDTH 14.5 % (0-14.5); WHITE BLOOD COUNT 14.3 10*3/uL (4.8-10.8)
[2019-12-17 14:07] LABS: ALBUMIN 3.1 gm/dl (3.1-4.5); ALKALINE PHOSPHATASE 147 U/L (45-117); BUN 16 mg/dl (7-24); CHLORIDE 107 mmol/L (98-107); CREATININE 0.75 mg/dL (0.55-1.02); SGOT/AST 24 IU/L (3-35); SGPT/ALT 44 U/L (12-78); SODIUM 139 mmol/L (136-145); TOTAL PROTEIN 6.5 gm/dL (6.4-8.2)
[2019-12-17 14:08] LABS: ACT PARTIAL THROMBO TIME 25.6 SECONDS (20.0-32.1)
[2019-12-17 14:14] VITALS: BP 143/81
[2019-12-17 14:14] LABS: TROPONIN I < 0.015 ng/ml (<0.045)
[2019-12-17 15:03] VITALS: BP 175/88
--- NOTE | 2019-12-17 16:25 | NUR ---
DR MCKEON CALLED AND STATES DISCONTINUE ALL ANTIBIOTICS, HE WANTS TO CULTURE THE INCISION TOMORROW.
[2019-12-17 17:00] LABS: BILIRUBIN Negative (Negative); BLOOD Trace-Lysed (Negative); CLARITY Cloudy (Clear); COLOR Yellow (Yellow); GLUCOSE Negative (Negative); KETONE Negative (Negative); LEUKO ESTERASE 3+ (Negative); NITRITE Positive (Negative); SPECIFIC GRAVITY 1.015 (1.001-1.030); UROBILINOGEN 0.2 E.U./dl (0.0-1.0)
[2019-12-17 17:23] LABS: BACTERIA TRACE; EPITHELIAL CELLS 0-2; WBC 41-50 wbc/hpf (0-5)
[2019-12-17 17:54] VITALS: BP 163/83
--- NOTE | 2019-12-17 18:11 | NUR ---
PT SITTING UP IN BED EATING DINNER AND WATCHING TELEVISION. NO VOICED C/O AT THIS TIME.
--- NOTE | 2019-12-17 18:14 | NUR ---
PT STATES ULTRAM EFFECTIVE FOR PAIN.
--- NOTE | 2019-12-17 18:38 | NUR ---
DR MCKEON CALLED UNIT, ORDERS RECEIVED.
--- NOTE | 2019-12-17 19:11 | NUR ---
TALKED WITH RESIDENT AND EXPLAINED DR MCKEON WANTS ALL ANTIBIOTICS D/C FOR HIP CULTURE IN THE AM.
--- NOTE | 2019-12-17 19:50 | NUR ---
24 HR chart check completed.
[2019-12-17 20:00] VITALS: BP 149/76
--- NOTE | 2019-12-17 20:09 | NUR ---
Pt started on Incentive Spirometer. 1000cc Encouraged self-use 10 X an hour.
--- NOTE | 2019-12-17 20:16 | NUR ---
A 64, F admitted to , under the services of LAITH Vazquez DO with a diagnosis of RIGHT HIP POST OP WOUND INFECTION. SEPSIS. Chief complaint is RIGHT HIP REPLACEMENT 12/04 AT [facility] WITH DR BANKS. D/C'D 12/14. RIGHT KNEE PAIN STARTED 12/15. CONFUSION PER DAUGHTER. Patient arrived via bed from ER. Monitor applied. Initial assessment completed. Vital signs taken and recorded. LAITH VAZQUEZ DO / DR REEVES notified of admission to the unit. Orders received. See assessment for past medical history, medications and allergies. Patient and/or family oriented to unit. [facility] visitation policy reviewed. Clothing/patient valuable form completed. BIGG SPRINGER
[2019-12-17 20:20] VITALS: BP 149/76
[2019-12-17] MEDS ORDERED: LEADER ASPIRIN325 MG PO (20:35)
[2019-12-17] MEDS ORDERED: PERCOCET 5-3251 EACH PO (20:36)
[2019-12-17] MEDS ORDERED: TRELEGY ELLIPT1 EACH INH (20:37)
[2019-12-17] MEDS ORDERED: PROVENTIL HFA6.7 GM INH (20:39)
[2019-12-17] MEDS ORDERED: VENTOLIN 02.5 MG/3 M INH (20:40)
--- NOTE | 2019-12-17 22:41 | NUR ---
REQUESTED AND RECEIVED NORCO PER PRN ORDER FOR COMPLAINTS OF RIGHT KNEE PAIN RATING AN 8. CALL LIGHT WITHIN REACH. WILL MONITOR
--- NOTE | 2019-12-17 23:30 | NUR ---
MEDS APPEAR EFFECTIVE. SLEEPING
[2019-12-18] VITALS (9 sets, daily range): BP systolic 134–181; BP diastolic 56–98
--- NOTE | 2019-12-18 01:57 | NUR ---
PATIENT ASSISTED TO BSC AND RETURNED TO BED, POSITIONED FOR COMFORT. MEDICATED WITH MORPHINE IV PER PRN ORDER FOR COMPLAINTS OF RIGHT HIP/KNEE PAIN RATING AN 8. CALL LIGHT WITHIN REACH. WILL MONITOR
--- NOTE | 2019-12-18 02:30 | NUR ---
EARLIER MEDS APPEAR EFFECTIVE. SLEEPING. RESPIRATIONS EASY. CALL LIGHT WITHIN REACH. BED ALARM MAINTAINED FOR SAFETY
--- NOTE | 2019-12-18 05:30 | NUR ---
ASSISTED TO BSC AND RETURNED TO BED, PATIENT TOLERATED WELL. NPO STATUS MAINTAINED. CALL LIGHT WITHIN REACH. NO VOICED COMPLAINTS
[2019-12-18 06:26] LABS: BASO % 0.3 % (0.0-1.0); EOS # 0.5 10*3/uL (0.0-0.4); EOS % 3.7 % (1.0-4.0); HEMATOCRIT 36.4 % (37.0-47.0); LYMPH % 16.4 % (27.0-41.0); MEAN CELL VOLUME 96.6 fl (81.0-99.0); MEAN CORPUSCULAR HGB 28.9 pg (27.0-31.0); MEAN CORPUSCULAR HGB CONC 29.9 g/dl (33.0-37.0); MEAN PLATELET VOLUME 8.4 fl (9.6-12.3); NEUT # 8.6 10*3/uL (2.3-7.9); NEUT % 71.3 % (47.0-73.0); PLATELET COUNT AUTOMATED 484 10*3/uL (130-400); RED BLOOD COUNT 3.77 10*6/uL (4.10-5.10); RED CELL DISTRI WIDTH 14.3 % (0-14.5); WHITE BLOOD COUNT 12.1 10*3/uL (4.8-10.8)
[2019-12-18 06:57] LABS: ALBUMIN 2.7 gm/dl (3.1-4.5); ALKALINE PHOSPHATASE 139 U/L (45-117); BUN 9 mg/dl (7-24); CHLORIDE 111 mmol/L (98-107); CHOLESTEROL 146 mg/dL (<200); CREATININE 0.64 mg/dL (0.55-1.02); FREE T4 1.13 ng/dl (0.76-1.46); HDL CHOLESTEROL 42 mg/dl (40-60); LDL CHOLESTEROL 90 mg/dL (9-159); POTASSIUM 4.1 mmol/L (3.5-5.1); SGOT/AST 31 IU/L (3-35); SGPT/ALT 38 U/L (12-78); SODIUM 142 mmol/L (136-145); TOTAL PROTEIN 6.1 gm/dL (6.4-8.2); TRIGLYCERIDES 71 mg/dl (<150); VLDL CHOLESTEROL 14 mg/dL (6-40)
[2019-12-18 08:12] LABS: VITAMIN D, 25-HYDROXY 30.4 ng/mL (30-100)
--- NOTE | 2019-12-18 08:21 | NUR ---
DR MCKEON ROUNDED AND DISCUSSED PLAN OF CARE WITH PATIENT AND FAMILY. DR MCKEON ASKED THAT I NOTIFIY HOSPITALIST TO ORDER ABX TO TREAT UTI.
--- NOTE | 2019-12-18 08:22 | NUR ---
NOTIFIED DR SHARMA PER DR MCKEON REGARDING ABX. ORDER RECIEVED.
--- NOTE | 2019-12-18 08:24 | NUR ---
PHYSICAL THERAPY Pt admitted with R hip pain after recent THR 12/04 at [facility]. Per H&P CT scan shows possible hematoma/infection, R greater trochanter fx. consulted and to further assess this AM regarding POC. Will follow as per Ortho after further assessment, thank you. Anna Gonzalez PT
--- NOTE | 2019-12-18 08:40 | NUR ---
OT awaiting ortho consult d/t h/o recent R JANESSA 12/05/19 at [facility] and new r/o right greater trochanger fracture. OT to recheck after ortho consult. Rhianna Cordova OTR/l
--- NOTE | 2019-12-18 08:57 | NUR ---
MORPHINE 2 MG GIVEM FOR C/O PAIN TO RIGHT HIP,12/08.
--- NOTE | 2019-12-18 09:00 | NUR ---
Aoc Director Combat Plans Officer in to talk to patient. Patient states lives at home with boyfriend. There are no steps in the home. Physician: elbert [facility]acy: [facility] Home health services: [facility] therapy only Patient's level of ADLs: MINIMAL ASSIST Patient has working utilities: all working DME: nebulizer, cane Follow-up physician's appointment after d/c: will be made by hospitalist nurse director upon discharge Does patient want to access PORTAL?: no Discharge plan discussed with patient, she states she lives at home with her boyfriend, she recently had hip surgery and uses a cane for ambulation, states she has a difficul time using a walker. she requires minimal assistance with adls. disucssed with her a short term fpc for 5 days of rehab and 24 hour care prior to returning home, she declined, stated she has her boyfriend at home and her daughter also helps her. she would like to continue [facility] when discharged. case management will follow for any other home needs. PEREZ PALOMO
--- NOTE | 2019-12-18 10:33 | NUR ---
PT CURRENTLY OFF FLOOR TO OR VIA BED WITH DR MCKEON FOR PROCEDURE.
--- NOTE | 2019-12-18 13:38 | NUR ---
PHYSICAL THERAPY Per further notes by Ortho for possible surgical procedure R hip in the AM will follow as appropriate per MD and orders for PT. nAna Gonzalez PT
--- NOTE | 2019-12-18 15:31 | NUR ---
MORPHINE 2MG GIVEN FOR C/O PAIN TO BACK,12/08.
--- NOTE | 2019-12-18 16:55 | NUR ---
ZOFRAN 4 MG GIVEN FOR C/O PAIN,12/08.
--- NOTE | 2019-12-18 19:17 | NUR ---
24 HR chart check completed.
--- NOTE | 2019-12-18 20:36 | NUR ---
DROWSY, RESTING IN BED. RESPIRATIONS EASY. LUNGS DIMINISHED WITH WHEEZES. PULSE OX 92% RA. DRESSING INTACT RIGHT HIP WITH ICE IN PLACE. ABDUCTOR PILLOW IN PLACE. MEDICATED WITH NORCO PER PRN ORDER FOR COMPLAINTS OF RIGHT HIP PAIN RATING A 9. CALL LIGHT WITHIN REACH. BED ALARM MAINTAINED FOR SAFETY
--- NOTE | 2019-12-18 21:13 | NUR ---
STATES EARLIER NORCO "HELPING SOME." RESTORIL PROVIDED TO ASSIST WITH SLEEP. WILL MONITOR
--- NOTE | 2019-12-18 22:00 | NUR ---
EARLIER MEDS APPEAR EFFECTIVE. SNORING. CALL LIGHT WITHIN REACH. BED ALARM MAINTAINED.
--- NOTE | 2019-12-18 23:16 | NUR ---
MORPHINE IV PROVIDED PER PRN ORDER FOR COMPLAINTS OF RIGHT HIP PAIN RATING AN 8. CALL LIGHT WITHIN REACH. WILL MONITOR
[2019-12-19] VITALS: BP 176/82
--- NOTE | 2019-12-19 | NUR ---
MEDS EFFECTIVE. SLEEPING. RESPIRATIONS EASY. O2 APPLIED AT 2L, PULSE OX 97%. CALL LIGHT WITHIN REACH
--- NOTE | 2019-12-19 02:59 | NUR ---
PATIENT ASSISTED TO USE BEDPAN. C/O PAIN TO RIGHT HIP RATING A 6, MEDICATED WITH NORCO PER PRN ORDER. CALL LIGHT WITHIN REACH. WILL MONITOR
--- NOTE | 2019-12-19 03:40 | NUR ---
MEDS APPEAR EFFECTIVE. SLEEPING. CALL LIGHT WITHIN REACH. BED ALARM MAINTAINED
--- NOTE | 2019-12-19 05:32 | NUR ---
MEDICATED WITH MORPHINE IV PER PRN ORDER FOR COMPLAINTS OF RIGHT HIP PAIN RATING A 4. WILL MONITOR
--- NOTE | 2019-12-19 06:00 | NUR ---
DRESSING AND ICE MAINTAINED TO RIGHT HIP. ABD PILLOW IN PLACE
--- NOTE | 2019-12-19 06:10 | NUR ---
MEDS EFFECTIVE. SLEEPING. RESPIRATIONS EASY. CALL LIGHT WITHIN REACH. BED ALARM MAINTAINED.
[2019-12-19 06:24] LABS: BASO % 0.2 % (0.0-1.0); EOS # 0.2 10*3/uL (0.0-0.4); HEMATOCRIT 37.8 % (37.0-47.0); LYMPH # 1.6 10*3/uL (1.3-4.4); LYMPH % 8.9 % (27.0-41.0); MEAN CELL VOLUME 97.9 fl (81.0-99.0); MEAN CORPUSCULAR HGB CONC 29.6 g/dl (33.0-37.0); MONO # 1.5 10*3/uL (0.1-1.0); NEUT # 14.8 10*3/uL (2.3-7.9); NEUT % 81.5 % (47.0-73.0); PLATELET COUNT AUTOMATED 494 10*3/uL (130-400); RED BLOOD COUNT 3.86 10*6/uL (4.10-5.10); RED CELL DISTRI WIDTH 14.4 % (0-14.5); WHITE BLOOD COUNT 18.2 10*3/uL (4.8-10.8)
[2019-12-19 06:35] LABS: BUN 11 mg/dl (7-24); CHLORIDE 110 mmol/L (98-107); CREATININE 0.59 mg/dL (0.55-1.02); POTASSIUM 3.9 mmol/L (3.5-5.1); SODIUM 140 mmol/L (136-145)
[2019-12-19 08:00] VITALS: BP 167/81
--- NOTE | 2019-12-19 08:39 | NUR ---
PT C/O OF RIGHT HIP AND BACK PAIN RATING 5/10 PRN NORCO GIVEN PER ORDER
--- NOTE | 2019-12-19 09:00 | NUR ---
case management visits with patient, again discussed with her a short term skilled nurisng for 5 days of rehab and 24 hour care prior to returning home. she stated she would like to think about this and also talk with her daughter. case management will follow after patient has talked with her daughter
--- NOTE | 2019-12-19 09:05 | NUR ---
PT RESTING IN BED WITH EYES CLOSED NO COMPLAINTS
--- NOTE | 2019-12-19 09:25 | NUR ---
Occupational Therapy evaluation completed on FOUR with full evaluation to follow. Recommend occupational therapy per plan of care and Home with HH with 21/09 supervision assist versus SNF pending patient progression upon discharge. Thank you for this referral. CHACE Lancaster/L
--- NOTE | 2019-12-19 09:30 | NUR ---
PHYSICAL THERAPY Physical Therapy evaluation completed on 4th floor with full evaluation to follow. Recommend physical therapy per plan of care and SNF vs Home w HH pending progress upon discharge. Thank you for this referral. Anna Gonzalez PT
[2019-12-19 12:00] VITALS: BP 132/56
--- NOTE | 2019-12-19 13:11 | NUR ---
PHYSICAL THERAPY TREATMENT TIME: OUT 1311 22 MINUTES Patient presented to therapy in sitting in bedside chair with chair alarm attached to patient. Patient gives informed consent for treatment. Patient was identified by name and on wristband. Patient reports a R hip pain of 8/10. Patient was instructed in hip precautions, including no twisting, no pivoting, no greater than 90 degrees at the hip, no hip extension and no hip abduction. Patient was instructed in "penquin walking" or wt. shifting in order to avoid hip abduction and hip extension ,as well as NO pivoting on the R LE. Patient transferred sit <> stand out of bedside chair with CGA- MIN A X 1. Patient practiced wt shifting or "penquin walking" with Wh Walker in front of bedside chair. Standing tolerance and penquin walking was about 5 minutes total time. Patient transferred back into the bedside chair CGA and verbal cues for putting hands back on armrests of chair. Patient performed seated LAQs and heel/toe raises 2 x 10 reps each LE for strengthening. Patient then transferred STS out of bedside chair again with CGA- MIN A X 1 with verbal instructions for staying out of 90 degrees of hip flexion. Patient "penquin walked" with Wh Walker, turning back to EOB and then sitting on EOB with CGA. Patient transferred sit EOB to supine with MAX A X 2 to avoid hip abduction. Patient was moved up in bed with draw sheet MAX A X 2. Patient was left in supine in bed with head of bed elevated, call light within reach and bed alarm on. Patient was 1:1 with this SNOWBOARDER for 22 minutes total. CHEN MCKENZIE SNOWBOARDER
--- NOTE | 2019-12-19 14:12 | NUR ---
OT NOTE Pt was seen this P.M. 1:1 for 24 minute OT session. Upon arrival pt was supine in bed. Pt identified by name and and had complaints of 8/10 R hip pain. Pt was able to verbalize and recall all hip precautions. Pt transferred sit to stand from chair level with Reynaldo and use of w/w for UE support. Challenged pt's static standing tolerance needed for increased I in self care tasks and functional transfers. Pt was able to tolerate aprox 2-3 mintues at a time before sitting due to fatigue. Functional mobility completed to the bedside commode and back with CGA and use of w/w while maintaining hip precautions. While seated pt completed BUE towel exercises over all planes for 1 X 10 to increase and restore maximum functional strength. Functional mobility completed to the EOB where she transferred sit to supine with Reynaldo for assist with RLE. There she was left with call light in hand, tray table in place, and bed alarm activated for safety. Continue with POC as able. TAYO Clayton
--- NOTE | 2019-12-19 15:20 | NUR ---
PT C/O OF BACK PAIN RATING 5/10 PT REPOSTIONED IN CHAIR AND PRN NORCO GIVEN PER ORDER
[2019-12-19 16:00] VITALS: BP 147/70
--- NOTE | 2019-12-19 16:00 | NUR ---
PT RESTING IN CHAIR PER PT NORCO WAS EFFECTIVE
--- NOTE | 2019-12-19 17:22 | NUR ---
PT C/O OF RIGHT HIP PAIN AND BACK PAIN PRN MORHPINE GIVEN FOR PAIN 10/08, PT REFUSING SCD AT THIS TIME AND EDUCATED ON RISK OF BLOOD CLOTS, PT VOICED UNDERSTANDING, AND AGREED TO HAVE ON LATER
--- NOTE | 2019-12-19 18:00 | NUR ---
PER PT MORPHINE WAS EFFECTIVE FOR PAIN
[2019-12-19 20:00] VITALS: BP 141/58
--- NOTE | 2019-12-19 20:52 | NUR ---
PRN NORCO GIVEN FOR PT COMPLAINTS OF 5/10 RIGHT HIP PAIN. ICE TO HIP. CALL LIGHT WITHIN REACH, BED ALARM INTACT, WILL MONITOR
--- NOTE | 2019-12-19 21:30 | NUR ---
PRN NORCO APPEARS EFFECTIVE, PT SLEEPING.
--- NOTE | 2019-12-19 22:20 | NUR ---
PRN RESTORIL AND MORPHINE GIVEN FOR PT COMPLAINTS OF SLEEPLESSNESS AND PAIN IN THE RIGHT HIP RATING IT 5/10. CALL LIGHT WITHIN REACH, ICE REMAINS TO HIP. PATIENT REFUSING ABDUCTOR PILLOW AND SCD'S. PATIENT STATES THAT SHE WILL JUST USE A BLANKET BETWEEN HER LEGS. EXPLAINED TO PATIENT THE USE OF THE ABDUCTOR PILLOW. SHE STILL STATES SHE DOESN'T WANT TO USE IT. CALL LIGHT WITHIN REACH, WILL MONITOR
--- NOTE | 2019-12-19 23:20 | NUR ---
PRN MEDICATION APPEARS EFFECTIVE, PT SLEEPING
[2019-12-20] VITALS: BP 114/52
--- NOTE | 2019-12-20 02:35 | NUR ---
24 HR chart check completed.
--- NOTE | 2019-12-20 03:35 | NUR ---
PATIENT SLEEPING, NO DISTRESS NOTED. SNORING RESPIRATIONS. CALL LIGHT WTIHIN REACH, WILL MONITOR
[2019-12-20 06:24] LABS: BASO % 0.3 % (0.0-1.0); EOS # 0.3 10*3/uL (0.0-0.4); EOS % 2.1 % (1.0-4.0); LYMPH # 1.8 10*3/uL (1.3-4.4); LYMPH % 12.5 % (27.0-41.0); MEAN CELL VOLUME 95.6 fl (81.0-99.0); MEAN CORPUSCULAR HGB 29.5 pg (27.0-31.0); MEAN CORPUSCULAR HGB CONC 30.9 g/dl (33.0-37.0); MEAN PLATELET VOLUME 8.8 fl (9.6-12.3); MONO # 1.4 10*3/uL (0.1-1.0); MONO % 9.9 % (3.0-9.0); NEUT # 10.8 10*3/uL (2.3-7.9); NEUT % 74.8 % (47.0-73.0); PLATELET COUNT AUTOMATED 488 10*3/uL (130-400); RED BLOOD COUNT 3.66 10*6/uL (4.10-5.10); RED CELL DISTRI WIDTH 14.5 % (0-14.5); WHITE BLOOD COUNT 14.5 10*3/uL (4.8-10.8)
[2019-12-20 06:51] LABS: BUN 13 mg/dl (7-24); CHLORIDE 108 mmol/L (98-107); CREATININE 0.64 mg/dL (0.55-1.02); POTASSIUM 3.7 mmol/L (3.5-5.1); SODIUM 140 mmol/L (136-145)
--- NOTE | 2019-12-20 08:00 | NUR ---
24 HR chart check completed.
[2019-12-20 08:17] VITALS: BP 130/58
--- NOTE | 2019-12-20 08:30 | NUR ---
PHYSICAL THERAPY PT SEEN FOR 1:1 TX IN AM. PT IDENTIFIED BY NAME AND . PT WAS SITTING IN ROOM CHAIR FINISHING NREAKFAST, AGREEABLE TO TX. PT STATES STATES 4/10 PAIN IN R HIP AND STATES SHE HAS NOT HAD HER PAIN PILL YET. PT IS AGREEABLE TO AMBULATION W/ WHEELED WALKER, REQUIRES CLOSE SBA W/ 25% V/C ON MAINTAINING HIP PREC W/ G INITIAL FOLLOW THROUGH HOWEVER PT TURNING TO TALK TO THERAPIST ADVISED TO NO TWISTING TO WHICH PT CORRECTS. PT IS ABLE TO PERFORM X 2 LAPS W/ 1 REST BREAK REQUIRED D/T SOB ON ROOM AIR, SPO2 DECREASES TO 88% W/ EDUCATION ON PURSED LIP BREATHING, QUICKLY RETURNING TO 94%. PT REQUESTS TO RETURN TO BED W/ V/C ON SAFETY AND TECHNIQUE FOR BED MOBIILITY W/ GOOD FOLLOW THROUGH. PT CALL LIGHT W/IN REACH AND COMFORTABLE. DALIA SMILEY, ELECTRONIC WARFARE LINGUIST
--- NOTE | 2019-12-20 09:00 | NUR ---
case management visits with patient, again discussed with her a discharged plan including a short term snf for rehab. she declined. stated she was up walking in the [place] today and her boyfriend will be at home with her 24 hours a day. she would like to continue with [facility], will notify [facility] when patient is discharged
--- NOTE | 2019-12-20 10:25 | NUR ---
OT NOTE Pt was seen this A.M. 1:1 for 24 minute OT session. Upon arrival pt was supine in bed. Pt identified by name and and had complaints of 4/10 R hip pain. Prior to start of activity pt was able to self recall and verbalize all hip precautions. Pt transferred supine to sit EOB with SBA while maintaining hip precautions. While sitting EOB pt completed LB dressing using adaptive equipment for doffing socks with use of dressing stick and donning new socks with sock aid and slippers with dressing stick with SBA while maintaining all hip precautions. Throughout pt used the classification officer to retrieve items from the floor level with SBA. Sit to stand completed from bed level with SBA and use of w/w for UE support. Functional mobility completed to the bathroom and back and transferred on/off bedside commode with SBA while maintaining all hip precautions. Pt then transferred back into bed sit to supine with SBA while maintaining hip precautions. There she was left with call light in hand, tray table in place, and phone in reach. Continue with POC as able. MEHNAZ Clayton/Juan C
--- NOTE | 2019-12-20 10:45 | NUR ---
PHYSICAL THERAPY PT IS SEEN FOR BID TXIN LATER AM FOR 1:1 FOR 15 MIN. PT STATES DECREASE IN PAIN TO 3/10 IN R HIP. BED MOBILITY FROM SUPINE->SIT SBA W/25% V/C ON SAFETY AND TECHNIQUE MAINTAINING HIP PREC W/ G FOLLOW THROUGH. STS FROM EOB SBA, SIDE STEPPING TO ROOM CHAIR SBA. SEATED THER EX TO B LE X20 REPS W/ R LE ONLY AP, LAQ, AND GS D/T HIP PREC. LE LE IN ALL PLANES X20 REPS W/ V/C ON INITATION AND TECHNIQUE W/ G FOLLOW THROUGH. PT REQUESTS TO REMAIN IN CHAIR. PHONE AND CALL LIGHT W/IN REACHA ND EDUCATED PT TO REQUEST FOR A PRIOR TO TRANSFERS FOR SAFETY, PT IS AGREEABLE AND SATISFIED. DALIA SMILEY, CATEGORY DEVELOPMENT ANALYST
[2019-12-20] MEDS ORDERED: PERCOCET 5-3251 EACH PO (11:15)
[2019-12-20] MEDS ORDERED: MACROBID100 M1 PO (11:15)
[2019-12-20 12:00] VITALS: BP 136/68
--- NOTE | 2019-12-20 12:19 | NUR ---
case management notified [facility] that patient is being discharged to home today
--- NOTE | 2019-12-20 12:47 | NUR ---
OT NOTE Pt was seen this P.M. 1:1 for second OT session consisting of 15 minutes. Upon arrival pt was supine in bed. Pt identified by name and and had complaints of 6/10 RLE pain, pt stating "it is all the muscles I haven't used in a long time being used now. Not my hip." Pt transferred supine to sit EOB with SBA. Sit to stand completed from bed level with SBA and use of w/w for UE support. Functional mobility completed from the EOB to the bathroom and back with SBA and use of w/w. Then challenged pt's dynamic standing balance while weight shifting, crossing midline, and reaching over all planes (within hip precautions). Pt was able to maintain G- standing balance throughout. Pt transferred back into bed sit to supine with SBA. Throughout entire session pt was able to maintain all hip precautions and was 100% compliant. Pt was left supine in bed with call light in hand, tray table in place, and phone in reach. Continue with POC as able. MEHNAZ Claytno/Juan C
--- NOTE | 2019-12-20 14:19 | NUR ---
case management received a call from [facility], Rashida from [facility] stated they did not have this patient for home care. patient did not know which company she had, also called a daughter and she did not know. another daughter stated patient had [facility]. contacted them and spoke to Larissa. she confirmed they were seeing patient and to fax resume order and they would continue seeing patient, resume order faxed
--- NOTE | 2019-12-20 14:51 | NUR ---
Discharge instructions reviewed with patient/family. Patient receptive and verbalizes understanding. Follow-up care arranged. Written instructions given to patient/family. IV WAS REMOVED. PT HAD NO COMPLAINTS. ZAINA ENGLISH
--- NOTE | 2019-12-21 07:27 | NUR ---
PHYSICAL THERAPY CO-SIGN I approve of the Physical Therapy notes written above. Anna Gonzalez PT
== END 2019-12-20 14:51 | disposition home health service (06) | DRG 856 ==
LOC: ED 13:19 → 4E 15:47 → EDHOLD 15:47 → 4E 19:14
PROVIDERS: Emergency Medicine; Orthopaedic Surgery; Social Worker Clinical; Student in an Organized Health Care Education/Training Program; ADMIT Emergency Medicine; ATTEND Emergency Medicine
DX: T81.49XA Infection following a procedure, other surgical site, initial encounter (principal); A41.9 Sepsis, unspecified organism; S72.114A Nondisplaced fracture of greater trochanter of right femur, initial encounter for closed fracture; J18.9 Pneumonia, unspecified organism; R65.20 Severe sepsis without septic shock; U07.1 COVID-19; M97.01XA Periprosthetic fracture around internal prosthetic right hip joint, initial encounter; N39.0 Urinary tract infection, site not specified; Z16.12 Extended spectrum beta lactamase (ESBL) resistance; G62.9 Polyneuropathy, unspecified; B96.89 Other specified bacterial agents as the cause of diseases classified elsewhere; B96.20 Unspecified Escherichia coli [E. coli] as the cause of diseases classified elsewhere; Y83.8 Other surgical procedures as the cause of abnormal reaction of the patient, or of later complication, without mention of misadventure at the time of the procedure; J44.9 Chronic obstructive pulmonary disease, unspecified; K21.9 Gastro-esophageal reflux disease without esophagitis; E83.41 Hypermagnesemia; Z96.641 Presence of right artificial hip joint; I10 Essential (primary) hypertension; F17.210 Nicotine dependence, cigarettes, uncomplicated; R31.9 Hematuria, unspecified; Z71.6 Tobacco abuse counseling; Z90.49 Acquired absence of other specified parts of digestive tract; Z90.710 Acquired absence of both cervix and uterus; Y92.89 Other specified places as the place of occurrence of the external cause; Z79.82 Long term (current) use of aspirin; Z79.51 Long term (current) use of inhaled steroids; Z79.899 Other long term (current) drug therapy; Z68.24 Body mass index [BMI] 24.0-24.9, adult

== ENCOUNTER → 2020-01-03 | Outpatient (CLI) | payer OTHER, MEDICAID ==
[~2020-01-03] MED LIST changes: +LEADER ASPIRIN325 MG PO; +MACROBID100 M1 PO; +PERCOCET 5-3251 EACH PO; +PROVENTIL HFA6.7 GM INH; +TRELEGY ELLIPT1 EACH INH; +VENTOLIN 02.5 MG/3 M INH
== END | disposition home or self-care (01) ==
LOC: ORTHO 05:04
PROVIDERS: ATTEND Orthopaedic Surgery
DX: M87.051 Idiopathic aseptic necrosis of right femur (principal); Z96.641 Presence of right artificial hip joint

== ENCOUNTER → 2020-02-28 | Outpatient (CLI) | payer OTHER, MEDICAID | END | disposition home or self-care (01) | LOC: ORTHO 00:25 | PROVIDERS: ATTEND Orthopaedic Surgery | DX: M97.01XD Periprosthetic fracture around internal prosthetic right hip joint, subsequent encounter (principal); X58.XXXD Exposure to other specified factors, subsequent encounter; Z96.641 Presence of right artificial hip joint ==

== ENCOUNTER → 2020-12-05 | Outpatient (CLI) | payer OTHER, MEDICAID | END | disposition home or self-care (01) | LOC: COVID19 17:36 | PROVIDERS: ATTEND Internal Medicine | DX: Z11.52 Encounter for screening for COVID-19 (principal) ==

== ENCOUNTER → 2020-12-26 | Outpatient (CLI) | payer OTHER, MEDICAID | END | disposition home or self-care (01) | LOC: MAMMO 14:00 | PROVIDERS: ATTEND Internal Medicine Nephrology | DX: Z12.31 Encounter for screening mammogram for malignant neoplasm of breast (principal); N64.89 Other specified disorders of breast ==

== ENCOUNTER → 2021-04-23 | Outpatient (CLI) | payer OTHER, MEDICAID | END | disposition home or self-care (01) | LOC: RAD 10:17 | PROVIDERS: ATTEND Orthopaedic Surgery | DX: Z47.1 Aftercare following joint replacement surgery (principal); S72.111D Displaced fracture of greater trochanter of right femur, subsequent encounter for closed fracture with routine healing; M97.01XA Periprosthetic fracture around internal prosthetic right hip joint, initial encounter; X58.XXXD Exposure to other specified factors, subsequent encounter; Z96.641 Presence of right artificial hip joint ==

== ENCOUNTER 2021-08-28 20:07 | Emergency (ER) | payer OTHER, MEDICAID ==
[~2021-08-28] VITALS: Ht 152.4 cm; Wt 54.9 kg
[2021-08-28 20:57] LABS: BASO % 0.3 % (0.0-1.0); EOS # 0.1 10*3/uL (0.0-0.4); EOS % 0.7 % (1.0-4.0); HEMATOCRIT 45.9 % (37.0-47.0); LYMPH # 2.7 10*3/uL (1.3-4.4); LYMPH % 23.1 % (27.0-41.0); MEAN CELL VOLUME 92.5 fl (81.0-99.0); MEAN CORPUSCULAR HGB 29.4 pg (27.0-31.0); MEAN CORPUSCULAR HGB CONC 31.8 g/dl (33.0-37.0); MEAN PLATELET VOLUME 9.7 fl (9.6-12.3); MONO # 0.9 10*3/uL (0.1-1.0); MONO % 8.1 % (3.0-9.0); NEUT # 7.8 10*3/uL (2.3-7.9); NEUT % 67.4 % (47.0-73.0); PLATELET COUNT AUTOMATED 331 10*3/uL (130-400); RED BLOOD COUNT 4.96 10*6/uL (4.10-5.10); RED CELL DISTRI WIDTH 13.1 % (0-14.5); WHITE BLOOD COUNT 11.6 10*3/uL (4.8-10.8)
[2021-08-28 21:14] LABS: ALKALINE PHOSPHATASE 98 U/L (45-117); BUN 19 mg/dl (7-24); CHLORIDE 105 mmol/L (98-107); CREATININE 0.89 mg/dL (0.55-1.02); LIPASE 96 U/L (73-393); POTASSIUM 4.1 mmol/L (3.5-5.1); SGOT/AST 26 IU/L (3-35); SGPT/ALT 20 U/L (12-78); SODIUM 143 mmol/L (136-145); TOTAL PROTEIN 7.4 gm/dL (6.4-8.2)
[2021-08-28 21:38] LABS: BILIRUBIN Negative (Negative); BLOOD 1+ (Negative); CLARITY Cloudy (Clear); COLOR Yellow (Yellow); GLUCOSE Negative (Negative); KETONE Trace (Negative); LEUKO ESTERASE Negative (Negative); NITRITE Negative (Negative); PH 5.5 (4.5-8.0); SPECIFIC GRAVITY 1.025 (1.001-1.030)
[2021-08-28 21:46] LABS: BACTERIA 1+; MUCOUS 1+; RBC 16-20 rbc/hpf (0-2)
[2021-08-29] MEDS ORDERED: TRAMADOL HCL50 MG PO (00:26)
== END 2021-08-29 00:51 | disposition home or self-care (01) ==
LOC: ED 20:07
PROVIDERS: Emergency Medicine
DX: R10.9 Unspecified abdominal pain (principal); J44.9 Chronic obstructive pulmonary disease, unspecified; Z79.82 Long term (current) use of aspirin; Z79.899 Other long term (current) drug therapy; Z87.891 Personal history of nicotine dependence; Z90.710 Acquired absence of both cervix and uterus; Z90.49 Acquired absence of other specified parts of digestive tract; Z98.890 Other specified postprocedural states

== ENCOUNTER → 2021-12-04 | Outpatient (CLI) | payer OTHER, MEDICAID | END | disposition home or self-care (01) | LOC: CT 10:00 | PROVIDERS: ATTEND Internal Medicine Critical Care Medicine | DX: J45.40 Moderate persistent asthma, uncomplicated (principal); J96.11 Chronic respiratory failure with hypoxia; J43.2 Centrilobular emphysema; D14.31 Benign neoplasm of right bronchus and lung; Z87.891 Personal history of nicotine dependence; R91.8 Other nonspecific abnormal finding of lung field ==

== ENCOUNTER 2022-02-18 16:37 | Inpatient (IN) | payer OTHER, MEDICAID ==
[~2022-02-18] VITALS: Ht 152.4 cm; Wt 53.7 kg
[~2022-02-18 16:37] MED LIST changes: +DULOXETINE HCL30 MG PO; +LEVOFLOXACIN750 M2 PO; +OMEPRAZOLE40 MG PO
[2022-02-18 17:35] VITALS: BP 127/74
[2022-02-18 19:00] LABS: MEAN CELL VOLUME 93.9 fl (81.0-99.0); MEAN CORPUSCULAR HGB 30.1 pg (27.0-31.0); MEAN CORPUSCULAR HGB CONC 32.1 g/dl (33.0-37.0); MEAN PLATELET VOLUME 9.6 fl (9.6-12.3); PLATELET COUNT AUTOMATED 421 10*3/uL (130-400); RED BLOOD COUNT 4.58 10*6/uL (4.10-5.10); RED CELL DISTRI WIDTH 14.3 % (0-14.5); WHITE BLOOD COUNT 18.7 10*3/uL (4.8-10.8)
[2022-02-18 19:03] LABS: MANUAL DIFF REFLEX YES
[2022-02-18 19:14] LABS: ABG BASE EXCESS -1.2 mmol/L (-2.0-2.0); ARTERIAL BLOOD GAS PH 7.375 (7.35-7.45); ARTERIAL BLOOD GAS PO2 67.3 (80-90)
[2022-02-18 19:15] LABS: ALKALINE PHOSPHATASE 139 U/L (46-116); BUN 21 mg/dl (9-23); CHLORIDE 94 mmol/L (98-107); CREATININE 0.82 mg/dL (0.55-1.02); POTASSIUM 4.2 mmol/L (3.4-5.1); SGPT/ALT 35 U/L (10-49); SODIUM 129 mmol/L (136-145); TOTAL PROTEIN 7.1 gm/dL (6.0-8.0)
[2022-02-18 19:24] LABS: PLATELET SUFFICIENCY HIGH (NORMAL); TOTAL CELLS COUNTED 100 #CELLS
[2022-02-18 19:25] LABS: POLYCHROMASIA SLIGHT
[2022-02-18 19:28] VITALS: BP 122/76
[2022-02-19 01:10] VITALS: BP 125/63
[2022-02-19 07:57] LABS: MEAN CELL VOLUME 94.2 fl (81.0-99.0); MEAN CORPUSCULAR HGB CONC 31.8 g/dl (33.0-37.0); MEAN PLATELET VOLUME 9.4 fl (9.6-12.3); PLATELET COUNT AUTOMATED 387 10*3/uL (130-400); RED BLOOD COUNT 4.14 10*6/uL (4.10-5.10); RED CELL DISTRI WIDTH 14.5 % (0-14.5); WHITE BLOOD COUNT 18.3 10*3/uL (4.8-10.8)
[2022-02-19 08:00] VITALS: BP 153/78
[2022-02-19 08:01] LABS: MANUAL DIFF REFLEX YES
[2022-02-19 08:18] LABS: ALKALINE PHOSPHATASE 119 U/L (46-116); BUN 20 mg/dl (9-23); CHLORIDE 102 mmol/L (98-107); CHOLESTEROL 132 mg/dL (<200); CREATININE 0.56 mg/dL (0.55-1.02); LDL CHOLESTEROL 69 mg/dL (9-159); POTASSIUM 4.3 mmol/L (3.4-5.1); SGPT/ALT 31 U/L (10-49); SODIUM 136 mmol/L (136-145); THYROID STIM HORMONE (HS) 0.388 uIU/ml (0.550-4.780); TOTAL PROTEIN 6.1 gm/dL (6.0-8.0); TRIGLYCERIDES 74 mg/dl (<150)
[2022-02-19 08:26] LABS: PLATELET SUFFICIENCY NORMAL (NORMAL); TOTAL CELLS COUNTED 100 #CELLS
[2022-02-19 09:03] LABS: VITAMIN D, 25-HYDROXY 20.5 ng/mL (30-100)
[2022-02-19 12:00] VITALS: BP 128/80
[2022-02-19 16:00] VITALS: BP 155/79
[2022-02-19 20:00] VITALS: BP 131/69
[2022-02-20] VITALS: BP 157/76
[2022-02-20 08:00] VITALS: BP 159/65
[2022-02-20 11:25] LABS: HEMATOCRIT 39.8 % (37.0-47.0); MEAN CELL VOLUME 95.2 fl (81.0-99.0); MEAN CORPUSCULAR HGB 29.4 pg (27.0-31.0); MEAN CORPUSCULAR HGB CONC 30.9 g/dl (33.0-37.0); MEAN PLATELET VOLUME 9.1 fl (9.6-12.3); PLATELET COUNT AUTOMATED 457 10*3/uL (130-400); RED BLOOD COUNT 4.18 10*6/uL (4.10-5.10); RED CELL DISTRI WIDTH 14.6 % (0-14.5); WHITE BLOOD COUNT 18.1 10*3/uL (4.8-10.8)
[2022-02-20 11:28] LABS: MANUAL DIFF REFLEX YES
[2022-02-20 11:44] LABS: TOTAL CELLS COUNTED 100 #CELLS
[2022-02-20 11:45] LABS: PLATELET SUFFICIENCY HIGH (NORMAL)
[2022-02-20 11:51] LABS: ALKALINE PHOSPHATASE 110 U/L (46-116); BUN 27 mg/dl (9-23); CHLORIDE 104 mmol/L (98-107); CREATININE 0.61 mg/dL (0.55-1.02); POTASSIUM 4.6 mmol/L (3.4-5.1); SGPT/ALT 30 U/L (10-49); SODIUM 138 mmol/L (136-145); TOTAL PROTEIN 6.2 gm/dL (6.0-8.0)
[2022-02-20 12:00] VITALS: BP 149/66
[2022-02-20 16:00] VITALS: BP 160/83
[2022-02-20 20:00] VITALS: BP 160/68
[2022-02-21] VITALS: BP 155/70
[2022-02-21 08:00] VITALS: BP 154/89
[2022-02-21 12:00] VITALS: BP 166/77
[2022-02-21 16:00] VITALS: BP 174/74
[2022-02-21 20:00] VITALS: BP 152/60
[2022-02-22] VITALS: BP 165/73
[2022-02-22 08:00] VITALS: BP 156/73
[2022-02-22 08:05] LABS: HEMATOCRIT 42.2 % (37.0-47.0); MANUAL DIFF REFLEX YES; MEAN CELL VOLUME 96.3 fl (81.0-99.0); MEAN CORPUSCULAR HGB 29.5 pg (27.0-31.0); MEAN CORPUSCULAR HGB CONC 30.6 g/dl (33.0-37.0); MEAN PLATELET VOLUME 9.2 fl (9.6-12.3); PLATELET COUNT AUTOMATED 551 10*3/uL (130-400); RED BLOOD COUNT 4.38 10*6/uL (4.10-5.10); RED CELL DISTRI WIDTH 14.2 % (0-14.5); WHITE BLOOD COUNT 17.8 10*3/uL (4.8-10.8)
[2022-02-22 08:26] LABS: PLATELET SUFFICIENCY HIGH (NORMAL); POLYCHROMASIA SLIGHT; TOTAL CELLS COUNTED 100 #CELLS; TOXIC GRANULATION SLIGHT; VACUOLATION OF NEUTROPHILS SLIGHT
[2022-02-22 08:37] LABS: ALKALINE PHOSPHATASE 126 U/L (46-116); BUN 18 mg/dl (9-23); CHLORIDE 97 mmol/L (98-107); CREATININE 0.49 mg/dL (0.55-1.02); POTASSIUM 4.4 mmol/L (3.4-5.1); SGPT/ALT 49 U/L (10-49); SODIUM 138 mmol/L (136-145); TOTAL PROTEIN 6.4 gm/dL (6.0-8.0)
[2022-02-22 12:00] VITALS: BP 157/78
[2022-02-22] MEDS ORDERED: NICODERM CQ1 EAC1 T (12:56)
[2022-02-22] MEDS ORDERED: DOXYCYCLINE HY100 M3 PO (12:56)
[2022-02-22] MEDS ORDERED: MUCINEX ER600 MG PO (12:56)
[2022-02-22] MEDS ORDERED: PREDNISONE10 MG PO (12:56)
[2022-02-22] MEDS ORDERED: CEFUROXIME AXE500 MG PO (12:58)
== END 2022-02-22 14:10 | disposition home or self-care (01) | DRG 871 ==
LOC: ED 16:37 → 4E 22:05 → EDHOLD 22:05 → 4E 23:47
PROVIDERS: Physician Assistant; Student in an Organized Health Care Education/Training Program; ADMIT Internal Medicine; ATTEND Internal Medicine
DX: A41.9 Sepsis, unspecified organism (principal); J18.9 Pneumonia, unspecified organism; J96.21 Acute and chronic respiratory failure with hypoxia; E87.1 Hypo-osmolality and hyponatremia; J44.1 Chronic obstructive pulmonary disease with (acute) exacerbation; E44.0 Moderate protein-calorie malnutrition; J44.0 Chronic obstructive pulmonary disease with (acute) lower respiratory infection; Z96.641 Presence of right artificial hip joint; K21.9 Gastro-esophageal reflux disease without esophagitis; G62.9 Polyneuropathy, unspecified; R65.20 Severe sepsis without septic shock; Z20.822 Contact with and (suspected) exposure to COVID-19; D75.839 Thrombocytosis, unspecified; E87.8 Other disorders of electrolyte and fluid balance, not elsewhere classified; R73.9 Hyperglycemia, unspecified; R74.01 Elevation of levels of liver transaminase levels; F17.210 Nicotine dependence, cigarettes, uncomplicated; Z71.6 Tobacco abuse counseling; Z90.710 Acquired absence of both cervix and uterus; Z90.6 Acquired absence of other parts of urinary tract; Z81.1 Family history of alcohol abuse and dependence; Z80.8 Family history of malignant neoplasm of other organs or systems; Z99.81 Dependence on supplemental oxygen; Z68.23 Body mass index [BMI] 23.0-23.9, adult

== ENCOUNTER → 2022-03-13 | Outpatient (CLI) | payer OTHER, MEDICAID ==
[~2022-03-13] MED LIST changes: +CEFUROXIME AXE500 MG PO; +DOXYCYCLINE HY100 M3 PO; +MUCINEX ER600 MG PO; +NICODERM CQ1 EAC1 T
[2022-03-13 15:08] LABS: BASO % 0.4 % (0.0-1.0); EOS # 0.2 10*3/uL (0.0-0.4); EOS % 1.9 % (1.0-4.0); HEMATOCRIT 41.5 % (37.0-47.0); LYMPH # 1.9 10*3/uL (1.3-4.4); LYMPH % 19.7 % (27.0-41.0); MEAN CELL VOLUME 95.4 fl (81.0-99.0); MEAN CORPUSCULAR HGB 29.2 pg (27.0-31.0); MEAN CORPUSCULAR HGB CONC 30.6 g/dl (33.0-37.0); MEAN PLATELET VOLUME 8.7 fl (9.6-12.3); MONO # 0.7 10*3/uL (0.1-1.0); MONO % 7.2 % (3.0-9.0); NEUT # 6.7 10*3/uL (2.3-7.9); NEUT % 70.4 % (47.0-73.0); PLATELET COUNT AUTOMATED 351 10*3/uL (130-400); RED BLOOD COUNT 4.35 10*6/uL (4.10-5.10); RED CELL DISTRI WIDTH 14.6 % (0-14.5); WHITE BLOOD COUNT 9.5 10*3/uL (4.8-10.8)
[2022-03-13 15:09] LABS: BILIRUBIN Negative (Negative); BLOOD Negative (Negative); CLARITY Clear (Clear); COLOR Yellow (Yellow); GLUCOSE Negative (Negative); KETONE Negative (Negative); LEUKO ESTERASE Trace (Negative); NITRITE Negative (Negative)
[2022-03-13 15:21] LABS: MUCOUS 1+
[2022-03-13 15:23] LABS: ABG BASE EXCESS 3.3 mmol/L (-2.0-2.0); ARTERIAL BLOOD GAS PH 7.439 (7.35-7.45); ARTERIAL BLOOD GAS PO2 55.3 (80-90)
[2022-03-13 15:26] LABS: ALKALINE PHOSPHATASE 67 U/L (46-116); BUN 18 mg/dl (9-23); CHLORIDE 104 mmol/L (98-107); FREE T4 1.04 ng/dl (0.89-1.76); POTASSIUM 3.6 mmol/L (3.4-5.1); SGPT/ALT 20 U/L (10-49); THYROID STIM HORMONE (HS) 1.244 uIU/ml (0.550-4.780)
== END | disposition home or self-care (01) ==
LOC: LAB 14:32
PROVIDERS: ATTEND Internal Medicine Nephrology
DX: R41.0 Disorientation, unspecified (principal); R00.0 Tachycardia, unspecified

== ENCOUNTER → 2022-03-23 | Outpatient (CLI) | payer OTHER, MEDICAID | END | disposition home or self-care (01) | LOC: CARD 11:00 | PROVIDERS: ATTEND Internal Medicine Nephrology | DX: R00.0 Tachycardia, unspecified (principal) ==

== ENCOUNTER → 2022-04-24 | Outpatient (CLI) | payer OTHER, MEDICAID | END | disposition home or self-care (01) | LOC: US 01:09 | PROVIDERS: ATTEND Internal Medicine Nephrology | DX: M79.89 Other specified soft tissue disorders (principal) ==

== ENCOUNTER → 2022-05-07 | Outpatient (CLI) | payer OTHER, MEDICAID | END | disposition home or self-care (01) | LOC: RAD 11:21 | PROVIDERS: ATTEND Internal Medicine Nephrology | DX: M11.012 Hydroxyapatite deposition disease, left shoulder (principal); W19.XXXD Unspecified fall, subsequent encounter ==

== ENCOUNTER → 2022-05-30 | Outpatient (CLI) | payer OTHER, MEDICAID | END | disposition home or self-care (01) | LOC: RAD 00:53 | PROVIDERS: ATTEND Internal Medicine Nephrology | DX: M79.602 Pain in left arm (principal) ==

== ENCOUNTER → 2022-09-15 | Outpatient (CLI) | payer OTHER, MEDICAID | END | disposition home or self-care (01) | LOC: MAMMO 08-24 00:16 | PROVIDERS: ATTEND Internal Medicine Nephrology | DX: Z12.31 Encounter for screening mammogram for malignant neoplasm of breast (principal) ==

== ENCOUNTER → 2022-10-01 | Day surgery (SDC) | payer OTHER, MEDICAID ==
[~2022-10-01] VITALS: Ht 154.9 cm; Wt 56.7 kg
[2022-10-01 10:11] VITALS: BP 132/77
[2022-10-01 10:45] VITALS: BP 147/77
[2022-10-01 11:00] VITALS: BP 131/74
[2022-10-01 11:12] VITALS: BP 133/84
== END ==
LOC: SDC 09-28 14:00
PROVIDERS: ATTEND Surgery
DX: R19.5 Other fecal abnormalities (principal); K59.00 Constipation, unspecified; I10 Essential (primary) hypertension; J44.9 Chronic obstructive pulmonary disease, unspecified; F41.9 Anxiety disorder, unspecified; M19.90 Unspecified osteoarthritis, unspecified site; D64.9 Anemia, unspecified; K44.9 Diaphragmatic hernia without obstruction or gangrene; Z87.891 Personal history of nicotine dependence; Z79.899 Other long term (current) drug therapy; Z90.49 Acquired absence of other specified parts of digestive tract; Z90.710 Acquired absence of both cervix and uterus; Z98.818 Other dental procedure status; Z98.890 Other specified postprocedural states

== ENCOUNTER → 2022-12-03 | Outpatient (CLI) | payer OTHER, MEDICAID | END | disposition home or self-care (01) | LOC: US 11-27 12:30 | PROVIDERS: ATTEND Internal Medicine Nephrology | DX: G62.9 Polyneuropathy, unspecified (principal); I10 Essential (primary) hypertension; I73.9 Peripheral vascular disease, unspecified; Z87.891 Personal history of nicotine dependence ==

== ENCOUNTER → 2024-06-16 | Outpatient (CLI) | payer OTHER, MEDICAID ==
[2024-06-16 08:29] LABS: BASO % 0.3 % (0.0-1.0); EOS # 0.2 10*3/uL (0.0-0.4); EOS % 1.6 % (1.0-4.0); HEMATOCRIT 43.1 % (37.0-47.0); MEAN CELL VOLUME 91.9 fl (81.0-99.0); MEAN CORPUSCULAR HGB 27.7 pg (27.0-31.0); MEAN CORPUSCULAR HGB CONC 30.2 g/dl (33.0-37.0); MEAN PLATELET VOLUME 9.3 fl (9.6-12.3); MONO # 0.8 10*3/uL (0.1-1.0); NEUT # 8.1 10*3/uL (2.3-7.9); NEUT % 70.3 % (47.0-73.0); PLATELET COUNT AUTOMATED 390 10*3/uL (130-400); RED BLOOD COUNT 4.69 10*6/uL (4.10-5.10); RED CELL DISTRI WIDTH 14.4 % (0-14.5); WHITE BLOOD COUNT 11.6 10*3/uL (4.8-10.8)
== END | disposition home or self-care (01) ==
LOC: LAB 07:50
PROVIDERS: ATTEND Internal Medicine Critical Care Medicine
DX: J43.2 Centrilobular emphysema (principal); R91.1 Solitary pulmonary nodule; J45.40 Moderate persistent asthma, uncomplicated; Z87.891 Personal history of nicotine dependence; D14.31 Benign neoplasm of right bronchus and lung; J96.11 Chronic respiratory failure with hypoxia; Z99.81 Dependence on supplemental oxygen

== ENCOUNTER → 2024-07-27 | Outpatient (CLI) | payer OTHER, MEDICAID | END | disposition home or self-care (01) | LOC: MAMMO 02:16 | PROVIDERS: ATTEND Internal Medicine Nephrology | DX: Z12.31 Encounter for screening mammogram for malignant neoplasm of breast (principal); N64.89 Other specified disorders of breast; R92.313 Mammographic fatty tissue density, bilateral breasts ==

== ENCOUNTER → 2024-10-13 | Outpatient (CLI) | payer OTHER, MEDICAID | LOC: RAD 10-06 10:00 | PROVIDERS: ATTEND Internal Medicine Nephrology | DX: M81.0 Age-related osteoporosis without current pathological fracture (principal); Z13.820 Encounter for screening for osteoporosis ==

== ENCOUNTER → 2024-10-20 | Outpatient (CLI) | payer OTHER, MEDICAID | END | disposition home or self-care (01) | LOC: US 02:29 | PROVIDERS: ATTEND Internal Medicine Nephrology | DX: M79.605 Pain in left leg (principal) ==